=== PATIENT | female | born 2000 | race Caucasian/White ===

== ENCOUNTER → 2021-08-10 08:25 | Outpatient (CLI) | payer BC, SELFPAY ==
--- NOTE | ~2021-08-10 | US_ITS ---
US thyroid INDICATION: Neck fullness. TECHNIQUE: Real-time sonographic images of the thyroid gland were obtained. COMPARISON: No prior studies for comparison. FINDINGS: The right thyroid lobe measures 5.2 x 1.3 x 1.5 cm. There is a hypoechoic solid mass of the right lobe measuring 6 x 4 x 6 mm which is wider than tall, smoothly marginated with no calcificatio ns, TR 4. The left thyroid lobe measures 5.1 x 1.3 x 1.7 cm. Normal vascular flow is present. IMPRESSION: 1. Small 6 mm right thyroid mass, likely benign. Otherwise, unremarkable thyroid ultrasound. Reviewed, dictated and finalized at location A. IMPRESSION: 1. Small 6 mm right thyroid mass, likely benign. Otherwise, unremarkable thyro id ultrasound.
== END ==
PROVIDERS: PCP Internal Medicine; Visit Provider Internal Medicine
DX: R09.89 Other specified symptoms and signs involving the circulatory and respiratory systems (principal)
CPT/HCPCS: 76536

== ENCOUNTER 2021-11-14 07:09 | Emergency (ER) | payer BC, SELFPAY ==
--- NOTE | ~2021-11-14 | CT_ITS ---
EXAMINATION: CT abdomen pelvis w con DATE: 11/14/2021 09:14 INDICATION: Epigastric abdominal pain. Nausea. TECHNIQUE: Computed tomography (CT) of the abdomen and pelvis was performed with 100 mL Omnipaque 350 intravenous contrast. Automated exposure control and iterative reconstruction technique were employe d. The dose-length product was 230.23 mGy-cm. COMPARISON: None. FINDINGS: The visualized portions of the lung bases are clear without pneumonia or pleural effusion. The heart size is normal. No pericardial effusion. The liver, gallbladder, spleen, pancreas, adrenal glands, and kidneys are normal. There is an intrauterine device in expected position. The appendix is normal. There are no dilated loops of bowel. There are no pathologically enlarged lymph nodes. There is no free intraperitoneal fluid. The bones are unremarkable. IMPRESSION: 1. No etiology for the patient's symptoms. Reviewed, dictated and finalized at location A.
[2021-11-14 07:11] VITALS: BP 150/98; PULSE 89; RESP 17; TEMP 36.5; O2SAT 100
--- NOTE | 2021-11-14 07:24 | ED.ABDPAIN ---
HPI - Abdominal Pain General Chief Complaint: Abdominal Pain Stated Complaint: abd pain, nausea, vomiting Time Seen by Provider: 11/14/21 07:24 Source: patient and RN notes reviewed Mode of arrival: ambulatory Limitations: no limitations History of Present Illness HPI narrative: 21 years old white female, presents with intermittent diarrhea, constipation, abdominal bloating for the last 8 months, got worse this morning mainly in the epigastric area with nausea. She denies any fever or chills. No history of abdominal surgery. History of attention deficit syndrome on Adderall. Patient does not take any medicine for IBS she does not smoke or drink or uses drugs. Related Data Allergies Allergy/AdvReac Type Severity Reaction Status Date / Time No Known Allergies Allergy Verified 11/14/21 07:43 Review of Systems Review of Systems: All systems reviewed & are unremarkable except as noted in HPI and below PMFSH Past Medical History Medical History ADHD Generalized anxiety disorder IBS (irritable bowel syndrome) Family History Family History Mother Hypertension Depression Father Hypertension Depression Family history of thyroid disease Social History Social History Smoking status: Never smoker Tobacco type: e-cigarettes/vaping Alcohol intake: current Substance use: never Exam Narrative: General appearance: Well-developed, well-nourished Skin: Normal color Head: Normocephalic, nontraumatic Eyes: Clear conjunctiva ENT: Oropharynx normal, ears normal, nose normal Neck: Supple, nontender Chest and respiratory: Airway patent, no respiratory distress, no accessory muscle use Heart: Regular rate/rhythm Abdomen: Soft, diffuse tenderness mainly epigastric area, no organomegaly, quiet bowel sounds Vascular: Normal peripheral pulses, normal capillary refill. Musculoskeletal: Normal range of motion, nontender back Neurologic: Alert and oriented ?3, CLAIM TAKER is normal as tested, no gross motor deficit Course Vital Signs Vital signs: Vital Signs Temperature 36.5 C 11/14/21 07:11 Pulse Rate 89 11/14/21 07:11 Respiratory Rate 17 11/14/21 07:11 Blood Pressure 150/98 H 11/14/21 07:11 Pulse Oximetry 100 11/14/21 07:11 Oxygen Delivery Room Air 11/14/21 07:11 Temperature 36.5 C 11/14/21 07:11 Pulse Rate 78 11/14/21 09:09 Respiratory Rate 18 11/14/21 09:09 Blood Pressure 118/66 11/14/21 09:09 Pulse Oximetry 99 11/14/21 09:09 Oxygen Delivery Room Air 11/14/21 07:11 MDM - Abdominal Pain Differential Diagnosis Differential diagnosis: Likely abdominal pain, acute appendicitis, calculus of kidney, constipation, diverticulitis and endometriosis Lab Data Result diagrams: 11/14/21 07:40 11/14/21 07:40 Labs: Lab Results 11/14/21 11/14/21 11/14/21 Range/Units 07:40 07:40 08:02 WBC 5.4 (4.5-10.0) K/mm3 RBC 4.08 L (4.2-5.4) M/mm3 Hgb 13.2 (12.0-15.0) g/dL Hct 39.1 (37.0-47.0) % MCV 95.8 (80-100) fl MCH 32.4 (26-34) pg MCHC 33.8 (32-36) g/dl RDW 11.8 (11.5-14.5) % Plt Count 302 (150-375) k/mm3 MPV 9.0 (7.4-10.4) fl Immature Gran % (Auto) 0.4 (0-0.5) % Neut % (Auto) 63.4 (45.5-73.1) % Lymph % (Auto) 26.2 (18.3-44.2) % Zapata % (Auto) 8.4 (2.6-8.5) % Eos % (Auto) 0.9 (0-4.4) % Baso % (Auto) 0.7 (0.2-1.2) % Lymph # (Auto) 1.40 (0.9-3.2) K/mm3 Zapata # (Auto) 0.5 (0.1-0.6) K/mm3 Eos # (Auto) 0.1 (0-0.3) K/mm3 Baso # (Auto)
[2021-11-14] MEDS: SODIUM CHLORIDE 0.9% IV 1,000 ML 999 ML IV CONT (07:38)
[2021-11-14] MEDS: METOCLOPRAMIDE HCL INJ 10 MG/2 ML VIAL IV PUSH (07:49)
[2021-11-14] MEDS: diphenhydrAMINE HCl INJ 50 MG/ML VIAL 25 MG IV PUSH (07:50)
[2021-11-14] MEDS: DICYCLOMINE HCL INJ 20 MG/2 ML VIAL IM (07:50)
[2021-11-14 07:53] LABS: Basophils Percent Auto 0.7 % (0.2-1.2); Eosinophils Absolute Auto 0.1 K/mm3 (0-0.3); Eosinophils Percent Auto 0.9 % (0-4.4); Hematocrit 39.1 % (37.0-47.0); Hemoglobin 13.2 g/dL (12.0-15.0); Immature Granulocyte Absolute 0.02 K/mm3 (0.00-0.031); Immature Granulocyte Percent A 0.4 % (0-0.5); Lymphocytes Percent Auto 26.2 % (18.3-44.2); Mean Corpuscular HGB Conc 33.8 g/dl (32-36); Mean Corpuscular Hemoglobin 32.4 pg (26-34); Mean Corpuscular Volume 95.8 fl (80-100); Monocytes Absolute Auto 0.5 K/mm3 (0.1-0.6); Monocytes Percent Auto 8.4 % (2.6-8.5); Neutrophils Absolute Auto 3.4 K/mm3 (1.3-6.7); Neutrophils Percent Auto 63.4 % (45.5-73.1); Platelet Count Result 302 k/mm3 (150-375); Red Blood Count 4.08 M/mm3 (4.2-5.4); Red Cell Distribution Width 11.8 % (11.5-14.5); White Blood Count 5.4 K/mm3 (4.5-10.0)
[2021-11-14 08:09] LABS: Alanine Aminotransferase 23 U/L (6-35); Albumin Level 4.5 g/dL (3.5-5.1); Alkaline Phosphatase 42 U/L (38-126); Anion Gap 9 mmol/L (8-16); Aspartate Amino Transferase 26 U/L (14-36); Bilirubin,Total 0.9 mg/dL (0.2-1.3); Blood Urea Nitrogen 13 mg/dL (7-17); Calcium 9.2 mg/dL (8.4-10.2); Carbon Dioxide 26 mmol/L (22-30); Chloride 102 mmol/L (98-107); Estimated Glomerular Filt Rate > 60; Glucose 94 mg/dL (65-110); Lipase 66 U/L (23-300); Potassium 3.6 mmol/L (3.4-5.0); Sodium 137 mmol/L (137-145)
[2021-11-14 08:13] LABS: Appearance Urine Slightly Cloudy (Clear); Bilirubin Urine 1+ (Negative); Blood Urine Negative (Negative); Color Urine Amber (Yellow); Glucose Urine UA Negative (Negative); Ketones Urine Trace mg/dL (Negative); Leukocyte Esterase Ur Negative LEU/UL (Negative); Nitrate Urine Negative (Negative); Protein Urine Negative (Negative); Specific Grav Ur >= 1.030 (1.001-1.035); Urobilinogen Urine 0.2 mg/dL (<2.0)
[2021-11-14 08:24] LABS: Bacteria Urine Trace /hpf; Mucus Urine Rare /lpf; RBC Urine 0-2 /hpf (0-2); Squamous Epithelial Cell Urine Many /hpf (Few); WBC Urine 0-3 /hpf
[2021-11-14 08:31] LABS: Add Urine Microscopic? YES
[2021-11-14 09:09] VITALS: BP 118/66; PULSE 78; RESP 18; O2SAT 99
[2021-11-14 10:25] VITALS: BP 126/73; PULSE 73; RESP 18; O2SAT 99
== END 2021-11-14 10:27 | disposition home or self-care (01) ==
PROVIDERS: Emergency Provider Emergency Medicine; PCP Internal Medicine
DX: R10.13 Epigastric pain (principal); K58.9 Irritable bowel syndrome, unspecified; F98.8 Other specified behavioral and emotional disorders with onset usually occurring in childhood and adolescence; F41.1 Generalized anxiety disorder
CPT/HCPCS: 36415; 74177; 80053; 81001; 81025; 83690; 85025; 96361; 96372; 96374; 96375; 99284; J0500; J1200; J2765; J7030; Q9967

== ENCOUNTER 2022-03-16 01:02 | Day surgery (SDC) | payer BC, SELFPAY ==
[2022-03-16 07:23] VITALS: BP 124/81; PULSE 99; RESP 16; TEMP 36.1; O2SAT 100
[2022-03-16] MEDS: LACTATED RINGERS 1,000 ML 150 ML IV CONT (07:32)
--- NOTE | 2022-03-16 08:16 | P.PNAN_ITS ---
Anes - Initial Pre Proc Eval Procedure: Operation Date: 03/16/22 08:45 Proposed Procedures p Esophagogastroduodenoscopy & Colonoscopy - Anthony Mabry MD Date/Time: 03/16/22 08:16 Surgeon: Anthony Mabry MD Pre Op Diagnosis: nausea, diarrhea Patient Data Age: 22 Gender: F Height: 1.65 m Weight: 54.2 kg Last Vital Signs Temp 96.9 F L 03/16/22 07:23 Pulse 99 03/16/22 07:23 Resp 16 03/16/22 07:23 BP 124/81 03/16/22 07:23 Pulse Ox 100 03/16/22 07:23 O2 Del Method Room Air 03/16/22 07:23 Allergies Allergy/AdvReac Type Severity Reaction Status Date / Time No Known Allergies Allergy Verified 03/16/22 07:21 Home Medications Medication Instructions Recorded Confirmed Type dextroamphetamine-amphetamine 10 10 mg PO .qpm work days only #30 03/09/22 03/16/22 Rx mg tablet (Adderall) tabs dextroamphetamine-amphetamine 15 15 mg PO QAM #30 tabs 03/09/22 03/16/22 Rx mg tablet (Adderall) valacyclovir 500 mg tablet 500 mg PO DAILY #30 tabs 03/10/22 03/16/22 Rx yeslas-mhjsxkej-ruviouj 1 cap PO TID 03/16/22 03/16/22 History 36,000-114,000-180,000 unit capsule,delay rel (Creon) Patient hx anesthesia problems: none Family hx anesthesia problems: none Results Review: All pre-operative results and documents have been reviewed as part of the pre- operative evaluation. [facility] Past Medical History Medical History (Updated 12/18/21 @ 15:18 by CHRISTINE Martines) ADHD Generalized anxiety disorder IBS (irritable bowel syndrome) Nausea Family History Family History Mother Hypertension Depression Father Hypertension Depression Family history of thyroid disease Social History Social History Smoking status: Current every day smoker Tobacco type: e-cigarettes/vaping Alcohol intake: current Drinks per week: 2 Substance use: never Living arrangements: with family Spiritual care concerns: No Anes - Eval Final PreProcedure Day of Procedure 03/16/22 08:16 Patient weight: normal Heart: regular rate and rhythm Lungs: clear to auscultation Airway: Mallampati scale class II Neurological: alert and oriented Last oral intake: >/= 8 hours ASA classification: II Emergent: no Anesthetic plan: proceed Anesthesia type and monitoring: general GIVS and standard monitoring Results Review: All pre-operative results and documents have been reviewed as part of the pre- operative evaluation. Informed Consent: The patient's anesthetic plan and its attendant risks and benefits were discussed with the patient/family/POA. Questions were solicited and answers provided to the satisfaction of the patient/family/POA.
--- NOTE | 2022-03-16 08:45 | PM.HPGS ---
History of Present Illness History of Present Illness Consent: Risks, benefits, and alternatives have been discussed and questions answered. Patient agrees to proceed with procedure. Chief complaint: nausea, diarrhea Narrative: Fabiola Jay is a 22 year old female with 8 months of post-prandial diarrhea, also sibo in the past treated with xifaxan but only bloating improved, intermittent abdominal pain. Started on creon after had low elastase in stool but still symptomatic. She had EGD when was much younger, never colonoscopy. Serology for celiac negative, normal calprotectin in stool. Review of Systems Constitutional: Constitutional: Denies headache(s) and Denies weakness Eyes: Eyes: Denies blurry vision ENT: Reports Normal hearing present, Denies headache(s) and Denies neck pain Cardiovascular: Cardiovascular: Denies chest pain and Denies dyspnea Respiratory: Respiratory: Denies dyspnea Gastrointestinal: Gastrointestinal: Reports no additional gastrointestinal complaints Genitourinary: Genitourinary: Denies dysuria Musculoskeletal: Musculoskeletal: Denies neck pain Integumentary/Breasts: Skin/Breast: Denies dry skin Neurologic: Reports Normal hearing present, Denies headache(s) and Denies weakness Psychiatric: Psychiatric: Denies anxiety Endocrine: Endocrine: Denies change in body appearance Hematologic/Lymphatic: Hematologic/Lymphatic: Denies easy bleeding Allergic/Immunologic: Allergic/Immunologic: Denies urticaria PMFSH Past Medical History Medical History (Updated 03/16/22 @ 08:47 by Anthony Mabry MD) ADHD Generalized anxiety disorder IBS (irritable bowel syndrome) Low fecal elastase level Nausea Family History Family History Mother Hypertension Depression Father Hypertension Depression Family history of thyroid disease Social History Social History Smoking status: Current every day smoker Tobacco type: e-cigarettes/vaping Alcohol intake: current Drinks per week: 2 Substance use: never Living arrangements: with family Spiritual care concerns: No Meds Home Medications and Allergies Home Medications Medication Instructions Recorded Confirmed Type dextroamphetamine-amphetamine 10 10 mg PO .qpm work days only #30 03/09/22 03/16/22 Rx mg tablet (Adderall) tabs dextroamphetamine-amphetamine 15 15 mg PO QAM #30 tabs 03/09/22 03/16/22 Rx mg tablet (Adderall) valacyclovir 500 mg tablet 500 mg PO DAILY #30 tabs 03/10/22 03/16/22 Rx uzfoxh-zuvqtmkw-hcltorp 1 cap PO TID 03/16/22 03/16/22 History 36,000-114,000-180,000 unit capsule,delay rel (Creon) Allergies Allergy/AdvReac Type Severity Reaction Status Date / Time No Known Allergies Allergy Verified 03/16/22 07:21 Vital Signs Vital Signs - 24 hr 03/16/22 07:23 Temperature 96.9 F L Pulse Rate 99 Respiratory Rate 16 Blood Pressure 124/81 Pulse Oximetry 100 Oxygen Delivery Room Air Exam Const: General: comfortable and no acute distress HENMT: Face/Nose/Sinus: Normal nares present Eyes: General: appearance normal, both eyes and all related structures Neck: Neck: no JVD Resp: Auscultation: clear to auscultation bilaterally Cardio: Rate: regular rate Rhythm: regular rhythm GI: Inspection: non-distended GI Palp: Yes Soft to palpation Skin: General skin exam: normal color Neuro: General: gait normal Speech: normal speech Extrem: General: normal to inspection Psych: Mental Status: mental status grossly normal Assessment and Plan Assessment and plan (1) Abdominal pain: Code(s): R10.9 - Unspecified abdominal pain Status: Acute Assessment and Plan: egd and colonoscopy with bx (2) IBS (irritable bowel syndrome): Code(s): K58.9 - Irritable bowel syndrome without diarrhea Status: Acute (3) Low fecal elastase level
--- NOTE | 2022-03-16 09:01 | SUR.OPER ---
EGD start 852 end 858 COLON start 903
[2022-03-16 09:24] VITALS: BP 113/67; PULSE 91; RESP 22; O2SAT 100
[2022-03-16 09:34] VITALS: BP 114/68; PULSE 89; RESP 23; O2SAT 100
[2022-03-16 09:44] VITALS: BP 107/68; PULSE 63; RESP 16; O2SAT 100
== END 2022-03-16 09:58 | disposition home or self-care (01) ==
PROVIDERS: PCP Internal Medicine; Visit Provider Internal Medicine Gastroenterology
PROC: 0DJ08ZZ Inspection of Upper Intestinal Tract, Via Natural or Artificial Opening Endoscopic (ICD-10-PCS; CPT 43235; principal; 2022-03-16 08:45)
DX: R19.7 Diarrhea, unspecified (principal); R14.0 Abdominal distension (gaseous); R10.30 Lower abdominal pain, unspecified; R11.0 Nausea; F90.9 Attention-deficit hyperactivity disorder, unspecified type; F41.1 Generalized anxiety disorder; F17.290 Nicotine dependence, other tobacco product, uncomplicated
CPT/HCPCS: 45380; 43239; 88305; J2704; J7120

== ENCOUNTER 2022-11-19 05:08 | Emergency (ER) | payer BC, SELFPAY ==
--- NOTE | ~2022-11-19 | CT_ITS ---
CT of the Abdomen and Pelvis: Indication: Abdominal pain Technique: 2.5 mm axial scans were obtained through the abdomen and pelvis following intravenous adm inistration of 100 cc of Omnipaque 350. Dose reduction technique was used on this scan by utilizing a utomated exposure control and iterative reconstruction technique. The dose-length product (DLP) was 2 32.25 mGy-cm. COMPARISON: 11/20/2021 Findings: Scans through the lung bases are unremarkable. The liver, spleen, pancreas, gallbladder, adrenals and kidneys are within normal limits. No evidence of aortic aneurysm. No lymphadenopathy. No bowel obstruction or bowel wall thickening. There is no evidence to suggest acute appendicitis. Images through the pelvis were performed. Urinary bladder unremarkable. No adnexal mass evident. No a scites. Impression: No significant abnormalities seen. Reviewed, dictated and finalized at [facility]. Impression: No significant abnormalities seen.
[2022-11-19 05:14] VITALS: BP 140/87; PULSE 88; RESP 16; TEMP 36.2; O2SAT 100
[2022-11-19 05:30] LABS: Basophils Absolute Auto 0.1 K/mm3 (0.0-0.1); Basophils Percent Auto 0.9 % (0.2-1.2); Eosinophils Absolute Auto 0.1 K/mm3 (0-0.3); Eosinophils Percent Auto 1.1 % (0-4.4); Hematocrit 42.7 % (37.0-47.0); Hemoglobin 13.7 g/dL (12.0-15.0); Immature Granulocyte Absolute 0.03 K/mm3 (0.00-0.031); Immature Granulocyte Percent A 0.5 % (0-0.5); Lymphocytes Percent Auto 45.2 % (18.3-44.2); Mean Corpuscular HGB Conc 32.1 g/dl (32-36); Mean Corpuscular Hemoglobin 31.9 pg (26-34); Mean Corpuscular Volume 99.3 fl (80-100); Mean Platelet Volume 8.8 fl (7.4-10.4); Monocytes Absolute Auto 0.6 K/mm3 (0.1-0.6); Monocytes Percent Auto 9.2 % (2.6-8.5); Neutrophils Absolute Auto 2.8 K/mm3 (1.3-6.7); Neutrophils Percent Auto 43.1 % (45.5-73.1); Platelet Count Result 364 k/mm3 (150-375); Red Cell Distribution Width 11.9 % (11.5-14.5); White Blood Count 6.4 K/mm3 (4.5-10.0)
[2022-11-19] MEDS: BELLADONNA ALK/PHENOB ELIX 10 ML, MAG HYDROX/ALUMINUM HYD/SIMETH 30 ML, LIDOCAINE HCL 2... PO (05:30)
[2022-11-19 05:36] LABS: Appearance Urine Cloudy (Clear); Bacteria Urine Rare /hpf; Bilirubin Urine Negative (Negative); Blood Urine Negative (Negative); Color Urine Yellow (Yellow); Glucose Urine UA Negative (Negative); Ketones Urine Negative (Negative); Leukocyte Esterase Ur Negative LEU/UL (Negative); Nitrate Urine Negative (Negative); Non Pathogenic Casts 0-2; Protein Urine Negative (Negative); RBC Urine 0-2 /hpf (0-2); Specific Grav Ur 1.026 (1.001-1.035); Squamous Epithelial Cell Urine Few /hpf (Few); Urobilinogen Urine 0.2 mg/dL (<2.0); WBC Urine 0-5 /hpf
[2022-11-19 05:38] LABS: Add Urine Microscopic? YES
[2022-11-19 05:39] LABS: Alanine Aminotransferase 22 U/L (6-35); Albumin Level 4.8 g/dL (3.5-5.1); Alkaline Phosphatase 38 U/L (38-126); Anion Gap 10 mmol/L (8-16); Aspartate Amino Transferase 26 U/L (14-36); Bilirubin,Total 0.5 mg/dL (0.2-1.3); Blood Urea Nitrogen 10 mg/dL (7-17); Calcium 8.9 mg/dL (8.4-10.2); Carbon Dioxide 27 mmol/L (22-30); Chloride 107 mmol/L (98-107); Estimated CRCL calculation 92 ml/min; Estimated Glomerular Filt Rate > 60; Glucose 91 mg/dL (65-110); Lipase 89 U/L (23-300); Potassium 4.3 mmol/L (3.4-5.0); Sodium 144 mmol/L (137-145)
--- NOTE | 2022-11-19 06:09 | ED.ABDPAIN ---
HPI - Abdominal Pain General Chief Complaint: Abdominal Pain <Shahid Jules MD - Last Filed: 11/19/22 21:31> Stated Complaint: abdominal pain <Shahid Jules MD - Last Filed: 11/19/22 21:31> Time Seen by Provider: 11/19/22 05:10 <Shahid Jules MD - Last Filed: 11/19/22 21:31> History of Present Illness HPI narrative: 22-year-old female presented to the emergency department for evaluation of epigastric abdominal pain. Patient states she did have some alcohol tonight and this made her symptoms worse. Patient does have a history of EPI. <Shahid Jules MD - Last Filed: 11/19/22 21:31> Related Data Allergies/Adverse Reactions: Allergies Allergy/AdvReac Type Severity Reaction Status Date / Time No Known Allergies Allergy Verified 11/19/22 05:09 <Shahid Jules MD - Last Filed: 11/19/22 21:31> Review of Systems Review of Systems: All systems reviewed & are unremarkable except as noted in HPI and below <Shahid Jules MD - Last Filed: 11/19/22 21:31> [facility] Past Medical History Medical History: Medical History ADHD Generalized anxiety disorder IBS (irritable bowel syndrome) Low fecal elastase level Nausea <Shahid Jules MD - Last Filed: 11/19/22 21:31> Family History Family History: Family History Mother Hypertension Depression Father Hypertension Depression Family history of thyroid disease <Shahid Jules MD - Last Filed: 11/19/22 21:31> Social History Social History: Social History (Updated 06/01/22 @ 11:30 by Andreina Taylor CMA) Smoking status: Never smoker Tobacco type: e-cigarettes/vaping Alcohol intake: current Drinks per week: 2 Substance use: never Lack of Transportation: No Lack of Food: Never True Current Housing: I Have Housing Concerned About Future Housing: No Difficulty Paying Gas/Electric Bills: No Difficulty Paying for Meds: No Currently Unemployed: No Education: Trade/Vocational Certificate Difficulty w/ Childcare or Family Care: No Living arrangements: with family Spiritual care concerns: No <Shahid Jules MD - Last Filed: 11/19/22 21:31> Exam Narrative: APPEARANCE: Distracted secondary to abdominal pain HEAD: normocephalic, atraumatic. EYES: PERRLA/EOMI, conjunctivae clear. NOSE: Normal no drainage NECK: Supple. No adenopathy, no masses. RESPIRATORY: Airway patent, respirations nonlabored. Clear to auscultation bilaterally, no rales, rhonchi, wheezing. CARDIOVASCULAR: Regular rate and rhythm without murmurs rubs or gallops. ABDOMINAL: Soft, epigastric tenderness to palpation MUSCULOSKELETAL: Moves all extremities. Strength/ROM intact, No edema, No calf tenderness. NEURO: Alert. Cranial nerves II through XII intact. Grossly intact SKIN: Warm, dry. Normal Color <Shahid Jules MD - Last Filed: 11/19/22 21:31> Course Course Emergency Course: 22-year-old female with history of exocrine pancreatic insufficiency. Patient is afebrile with no leukocytosis and a stable hemoglobin. Patient has no significant abnormalities on her CMP. UA was cloudy without other evidence of infection. Due to the level of patient's discomfort a CT scan was ordered. CT scan was ordering at time of signout Dr. Leger <Shahid Jules MD - Last Filed: 11/19/22 21:31> FORKLIFT SUPERVISOR/PA Physician Supervision 07:00 -this patient was signed out to me by Dr. Jules pending CT and pain control. 09:00 -CT abdomen pelvis not concerning for acute intra-abdominal process. I suspect the patient's pain is related to exocrine pancreatic insufficiency. The patient's pain was controlled with IV fluids, Percocet and Bentyl. Will discharge with recommendation for primary care, GI follow-up. Discussed return and emergency precautions including signs/symptoms of acute abdomen. The patie
[2022-11-19] MEDS: HYDROmorphone HCL INJ (*CRX) 1 MG/ML SYR IV PUSH (06:16)
[2022-11-19] MEDS: DICYCLOMINE HCL INJ 20 MG/2 ML VIAL IM (07:47)
[2022-11-19 07:56] VITALS: BP 115/70; PULSE 74; RESP 20; O2SAT 99
[2022-11-19] MEDS: oxyCODONE/ACETAMINOPHEN (*CRX) 5-325 MG TABLET 1 TABLET PO (08:31)
[2022-11-19] MEDS: SODIUM CHLORIDE 0.9% IV 1,000 ML 999 ML IV CONT (08:32)
[2022-11-19 09:22] VITALS: PULSE 71; RESP 20; O2SAT 99
== END 2022-11-19 09:23 | disposition home or self-care (01) ==
PROVIDERS: Emergency Medicine; Emergency Provider Preventive Medicine Aerospace Medicine; PCP Internal Medicine
DX: R10.13 Epigastric pain (principal); R11.2 Nausea with vomiting, unspecified; K58.9 Irritable bowel syndrome, unspecified; K86.81 Exocrine pancreatic insufficiency
CPT/HCPCS: 36415; 74177; 80053; 81001; 81025; 83690; 85025; 96361; 96372; 96374; 99284; A9270; J0500; J1170; J7030; Q9967

== ENCOUNTER 2023-04-23 19:02 | Emergency (ER) | payer BC, SELFPAY ==
--- NOTE | ~2023-04-23 | CT_ITS ---
EXAMINATION: CT brain wo con DATE: 04/23/2023 19:30 INDICATION: Headache. Neck pain. TECHNIQUE: Computed tomography (CT) of the head was performed without intravenous contrast. The mA wa s adjusted according to patient size. Iterative reconstruction technique was employed. The dose-lengt h product was 832.33 mGy-cm. COMPARISON: None FINDINGS: There is no intracranial hemorrhage, acute infarction, or abnormal intracranial mass lesion . The ventricles are normal in size. The orbits are normal. The paranasal sinuses are clear. There ar e small bilateral mastoid effusions. IMPRESSION: 1. Normal brain. Reviewed, dictated and finalized at location E. INSPECTOR IMPRESSION: 1. Normal brain.
[2023-04-23 19:03] VITALS: BP 126/80; PULSE 122; RESP 16; TEMP 36.6; O2SAT 99
--- NOTE | 2023-04-23 19:19 | ED.GENADULT ---
HPI - General Adult General Chief complaint: Unspecified Stated complaint: neck pain Time Seen by Provider: 04/23/23 19:08 Source: patient Mode of arrival: ambulatory Limitations: no limitations History of Present Illness HPI narrative: This is a 23 year old female that presents to the ER for symptoms ongoing since yesterday. Reports fatigue, myalgias, headache and fevers. Reports in the middle of the night she started to develop neck pain. No injury or trauma. She has not taken anything for pain. Reports some associated nausea and vomiting today. Does report chronic abdominal problems. Denies vision changes, numbness or weakness. Related Data Home Medications Medication Instructions Recorded Confirmed morphine 15 mg immediate release 15 mg PO Q6H PRN 11/23/22 11/23/22 tablet Allergies Allergy/AdvReac Type Severity Reaction Status Date / Time No Known Allergies Allergy Verified 04/23/23 20:13 Review of Systems Review of Systems: CONSTITUTIONAL: Reports fever EYES: Denies visual changes ENT: Denies rhinorrhea, congestion, sore throat RESPIRATORY: Denies cough GASTROINTESTINAL: Reports nausea, vomiting MUSCULOSKELETAL: Reports myalgia. NEUROLOGIC: Reports headache. Denies numbness, or weakness. All systems reviewed & are unremarkable except as noted in HPI and below PMFSH Past Medical History Medical History ADHD Generalized anxiety disorder IBS (irritable bowel syndrome) Low fecal elastase level Nausea Family History Family History Mother Hypertension Depression Father Hypertension Depression Family history of thyroid disease Social History Social History Smoking status: Never smoker Tobacco type: e-cigarettes/vaping Alcohol intake: current Drinks per week: 2 Substance use: never Lack of Transportation: No Lack of Food: Never True Current Housing: I Have Housing Concerned About Future Housing: No Difficulty Paying Gas/Electric Bills: No Difficulty Paying for Meds: No Currently Unemployed: No Education: Trade/Vocational Certificate Difficulty w/ Childcare or Family Care: No Living arrangements: with family Spiritual care concerns: No Exam Narrative: GENERAL: Well-appearing, well-nourished, and in no acute distress. HEAD: Normocephalic, atraumatic. EYES: PERRLA and EOMI. ENT: Nares clear, no rhinorrhea or epistaxis. Mucous membranes moist. Oropharynx without tonsillar hypertrophy exudate or other lesions. Bilateral TMs pearly alarcon non-bulging NECK: Supple. No adenopathy or masses. Normal ROM CHEST: Clear to auscultation. No respiratory distress. No wheezes rales or rhonchi HEART: Regular rate and rhythm. No murmur heard. Normal peripheral pulses. ABDOMEN: Soft, nontender, nondistended, normal active bowel sounds. EXTREMITIES: Normal range of motion. No edema. Strength equal in bilateral upper and lower extremities (5/5) SKIN: Warm, dry, no rash. NEURO: No focal deficits. Alert and oriented x3. Cranial nerves 2-12 grossly intact. Normal gait. Negative Kernig and Brudzinski PSYCH: Normal mood and affect Course Course Emergency Course: Patient updated on her workup and agrees with plan of care Vital Signs Vital signs: Vital Signs Temperature 97.8 F 04/23/23 19:03 Pulse Rate 122 H 04/23/23 19:03 Respiratory Rate 16 04/23/23 19:03 Blood Pressure 126/80 04/23/23 19:03 Pulse Oximetry 99 04/23/23 19:03 Temperature 98.7 F 04/23/23 20:12 Pulse Rate 106 H 04/23/23 20:12 Respiratory Rate 20 04/23/23 20:12 Blood Pressure 115/68 04/23/23 20:12 Pulse Oximetry 100 04/23/23 20:12 Medical Decision Making [facility] Narrative Medical decision making narrative: Patient presents to the emergency department for viral symptoms ongoing since yesterday. Rep
[2023-04-23] MEDS: METOCLOPRAMIDE HCL INJ 10 MG/2 ML VIAL IV PUSH (19:42)
[2023-04-23] MEDS: diphenhydrAMINE HCl INJ 50 MG/ML VIAL 25 MG IV PUSH (19:42)
[2023-04-23] MEDS: SODIUM CHLORIDE 0.9% IV 1,000 ML 999 ML IV CONT (19:42)
[2023-04-23] MEDS: ACETAMINOPHEN 500 MG TABLET 1000 MG PO (19:52)
[2023-04-23 19:53] LABS: Basophils Percent Auto 0.6 % (0.2-1.2); Eosinophils Percent Auto 0.6 % (0-4.4); Hematocrit 38.9 % (37.0-47.0); Hemoglobin 12.9 g/dL (12.0-15.0); Immature Granulocyte Absolute 0.01 K/mm3 (0.00-0.031); Immature Granulocyte Percent A 0.1 % (0-0.5); Lymphocytes Absolute Auto 2.08 K/mm3 (0.9-3.2); Lymphocytes Percent Auto 28.9 % (18.3-44.2); Mean Corpuscular HGB Conc 33.2 g/dl (32-36); Mean Corpuscular Hemoglobin 31.6 pg (26-34); Mean Corpuscular Volume 95.3 fl (80-100); Mean Platelet Volume 9.1 fl (7.4-10.4); Monocytes Absolute Auto 0.5 K/mm3 (0.1-0.6); Monocytes Percent Auto 6.9 % (2.6-8.5); Neutrophils Absolute Auto 4.5 K/mm3 (1.3-6.7); Neutrophils Percent Auto 62.9 % (45.5-73.1); Platelet Count Result 328 k/mm3 (150-375); Red Blood Count 4.08 M/mm3 (4.2-5.4); Red Cell Distribution Width 12.1 % (11.5-14.5); White Blood Count 7.2 K/mm3 (4.5-10.0)
[2023-04-23 20:04] LABS: Alanine Aminotransferase 22 U/L (6-35); Albumin Level 4.9 g/dL (3.5-5.1); Alkaline Phosphatase 34 U/L (38-126); Anion Gap 7 mmol/L (8-16); Aspartate Amino Transferase 27 U/L (14-36); Bilirubin,Total 0.7 mg/dL (0.2-1.3); Blood Urea Nitrogen 7 mg/dL (7-17); Calcium 9.5 mg/dL (8.4-10.2); Carbon Dioxide 26 mmol/L (22-30); Chloride 105 mmol/L (98-107); Estimated CRCL calculation 125 ml/min; Estimated Glomerular Filt Rate > 60; Glucose 95 mg/dL (65-110); Potassium 3.4 mmol/L (3.4-5.0); Sodium 138 mmol/L (137-145)
[2023-04-23 20:12] VITALS: BP 115/68; PULSE 106; RESP 20; TEMP 37.1; O2SAT 100
[2023-04-23 20:14] LABS: Influenza A QL RT-PCR Negative (Negative); Influenza B QL RT-PCR Negative (Negative); RSV RNA, RT-PCR Negative (Negative); SARS-CoV-2 RNA PCR Negative (Negative)
[2023-04-23] MEDS: KETOROLAC 15 MG/ML VIAL (*BKC) IV PUSH (20:52)
[2023-04-23 21:08] VITALS: BP 128/82; PULSE 94; RESP 19; O2SAT 99
[2023-04-23 21:19] VITALS: BP 128/82; PULSE 98; RESP 20; O2SAT 100
== END 2023-04-23 21:20 | disposition home or self-care (01) ==
PROVIDERS: Emergency Provider Physician Assistant; PCP Internal Medicine
DX: M54.2 Cervicalgia (principal); B34.9 Viral infection, unspecified
CPT/HCPCS: 36415; 70450; 80053; 85025; 87637; 96361; 96374; 96375; 99284; A9270; J1200; J1885; J2765; J7030

== ENCOUNTER 2024-09-13 19:50 | Emergency (ER) | payer BC, SELFPAY ==
--- NOTE | ~2024-09-13 | US_ITS ---
EXAMINATION: US OB <=14 wk fetus w TV DATE: 09/13/2024 22:05 INDICATION: 4 weeks . Vaginal spotting. TECHNIQUE: Real-time transabdominal and transvaginal obstetric ultrasound. FINDINGS: No prior studies for comparison. The uterus measures 8.2 x 5.1 x 6.1 cm. There is an intrauterine gestational sac, with pole heidy ntified. The crown rump length measures 0.39 cm, which correlates with a estimated gestational age o f 6 weeks 1 day. heart tones are identified measuring 110 BPM. Ovaries within normal limits w ithout significant ovarian or adnexal mass. No free fluid. IMPRESSION: 1. SL IUP with an EGA of 6 weeks, 1 days (EDC by current ultrasound of 05/08/2025). Reviewed, dictated and finalized at location B. IMPRESSION: 1. SL IUP with an EGA of 6 weeks, 1 days (EDC by current ultrasound of ).
[2024-09-13 19:52] VITALS: BP 124/75; PULSE 65; RESP 20; TEMP 36.6; O2SAT 99
--- OUTSIDE RECORDS SUMMARY | 2024-09-13 19:52 | XMS_ITS | Clinical Summary ---
Author Organization [facility] Health Address [address] [place] [address] Care Team Providers Care Silk Folder Name Role Phone Unavailable Primary Care Provider Unavailabl e Social History Tobacco Use Types Packs/Day Years Used Date Smoking Tobacco: Never Assessed Comments Unknown Sex and Gender Information Value Date Recorded Sex Assigned at Not on file Legal Sex Female 9:05 PM PDT Gender Identity Not on file Sexual Orientation Not on file Plan of Treatment Not on file
--- OUTSIDE RECORDS SUMMARY | 2024-09-13 19:52 | XMS_ITS | Encounter Summary ---
Author Organization [facility] Healthcare Address [address] [place] [address] Care Team Providers Care Fine Grader Name Role Phone Lv Chin DO Primary Care Provider [phone] Reason for Visit * Reason Comments GI Problem Vomiting and stomach pain. Can't drink water. Encounter Details Date Type Department Care Team (Late st Contact Info) Description 09/13/2024 7:15 PM CDT Office Visit [facility] at [address] [address] hSreya Israel, LOCOMOTIVE CRANE OPERATOR [address] [place] [address] [address] [place] [address] Dehydration (Primary Dx); Abdominal pain; Nausea and vomiting, unspecified vomiting type Social History Tobacco Use Types Packs/Day Years Used Date Smoking Tobacco: Some Days Vaping Comments:VAP sometimes AUDIT-C Answer Date Recorded Q1: How often do you have a drink containing alc ohol? Never 05/13/2023 Average Number of Drinks Not on file 024 Frequency of Binge Drinking Not on file 04/15 Personal Safety Answer Date Recorded Have you ever been in or are you currently in a harmful physical or emotional relationship or is someone making you feel afraid or unsafe? 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 Gender Identity Not on file Sexual Orientation Not on file documented as of this encounter Last Filed Vital Signs Vital Sign Reading Time Taken Comments Blood Pressure 118/78 09/13/2024 7:11 PM CDT Pulse 87 09/13/2024 7:11 PM CDT Temperature 36.9 C (98.4 F) 09/13/2024 7:11 PM CDT Respiratory Rate 18 09/13/2024 7:11 PM CDT Oxygen Saturation 99% 09/13/2024 7:11 PM CDT Inhaled Oxygen Concentration - - Weight 59 kg (130 lb) 09/13/2024 7:11 PM CDT Height - - Body Mass Index 21.63 08/16/2023 2:27 PM CDT documented in this encounter Patient Instructions * Patient Instructions* Shreya Israel NP - 09/13/2024 7:15 PM CDT Patient presents with 2 days of nausea vomiting. Reports she initially began with diarrhea however is not having any bowel movements at this point. Patient has not been able to keep down any fluids even water. Reports 1 episode of urination today. Concern for electrolyte imbalance/dehydration. documented in this encounter Plan of Treatment Not on file documented as of this encounter Visit Diagnoses Diagnosis Dehydration- Primary Abdominal pain Abdominal pain, unspecified site Nausea and vomiting, unspecified vomiting type documented in this encounter Care Teams Fine Grader Relationship Specialty Start Date End Date Lv Chin DO PCP - General Internal Medicine 03/16/23 documented as of this encounter
--- OUTSIDE RECORDS SUMMARY | 2024-09-13 19:52 | XMS_ITS | Encounter Summary ---
Author Organization [facility] [address] Address [address] [place] [address] Care Team Providers Care Solderer Furnace Name Role Phone Unavailable Primary Care Provider Unavailabl e Prior Encounters Date Type Department Care Team Description 03/05/2019 Converted CPS Chart Documents [facility] [address] [place] [phone] <No scans attached> 03/05/2019 Converted CPS Chart Documents [facility] [id number] [place] [phone] <No scans attached> 03/05/2019 Converted 13x Documents [facility] [address] [place] [address] <No scans attached> 03/05/2019 Converted 13x Documents [facility] [id number] [place] [phone] <No scans attached> Plan of Treatment Not on file Procedures Procedure Name Priority Date/Time Associated Diagnosis Comments TREATMENT OF COMPLICATIONS (POST-SURGICAL) - UNUSUAL CIRCUMSTANCES, BY REPORT Routine 06/11/2019 2:00 AM CDT 32 REMOVAL OF IMPACTED TOOTH - COMPLETELY BONY Routine 06/05/2019 2:00 AM CDT 17 REMOVAL OF IMPACTED TOOTH - COMPLETELY BONY Routine 06/05/2019 2:00 AM CDT 16 REMOVAL OF IMPACTED TOOTH - COMPLETELY BONY Routine 06/05/2019 2:00 AM CDT 1 REMOVAL OF IMPACTED TOOTH - COMPLETELY BONY Routine 06/05/2019 2:00 AM CDT 17 PALLIATIVE TREATMENT OF DENTAL PAIN Routine 06/04/2019 2:00 AM CDT 17 LIMITED ORAL EVALUATION - PROBLEM FOCUSED Routine 06/04/2019 2:00 AM CDT OS CONSULT Routine 06/01/2019 2:00 AM CDT 32 REMOVAL OF IMPACTED TOOTH - COMPLETELY BONY Routine 06/01/2019 2:00 AM CDT 17 REMOVAL OF IMPACTED TOOTH - COMPLETELY BONY Routine 06/01/2019 2:00 AM CDT 16 REMOVAL OF IMPACTED TOOTH - COMPLETELY BONY Routine 06/01/2019 2:00 AM CDT 1 REMOVAL OF IMPACTED TOOTH - COMPLETELY BONY Routine 06/01/2019 2:00 AM CDT THERAPEUTIC PARENTERAL DRUGS, TWO OR MORE ADMINISTRATIONS, DIFFERENT MEDICATIONS Routine 06/01/2019 2:00 AM CDT DEEP SEDATION/GENERAL ANESTHESIA EACH SUBSEQUENT 15 MINUTE INCREMENT Routine 06/01/2019 2:00 AM CDT DEEP SEDATION/GENERAL ANESTHESIA EACH SUBSEQUENT 15 MINUTE INCREMENT Routine 06/01/2019 2:00 AM CDT DEEP SEDATION/GENERAL ANESTHESIA EACH SUBSEQUENT 15 MINUTE INCREMENT Routine 06/01/2019 2:00 AM CDT DEEP SEDATION/GENERAL ANESTHESIA FIRST 15 MINUTES Routine 06/01/2019 2:00 AM CDT 18 LIMITED ORAL EVALUATION - PROBLEM FOCUSED Routine 05/29/2019 2:00 AM CDT BITEWINGS - TWO RADIOGRAPHIC IMAGES Routine 05/29/2019 2:00 AM CDT SINGLE X-RAY Routine 05/29/2019 2:00 AM CDT Visit Diagnoses Not on file
--- OUTSIDE RECORDS SUMMARY | 2024-09-13 19:52 | XMS_ITS | Patient Health Record ---
Author Organization [facility] Address [address] [facility] [address] Goldberg[address] [place] [phone] Care Team Providers Care Channel Manager Name Role Phone Lv Chin DO Primary Care Provider Christy mar Allergies No Known Allergies Reason For Referral No Information Medications Medication SIG (Take, Route, Frequency, Duration) Notes Start Date End Date Status Morphine Sulfate Act bna Sucralfate 1 GM/10ML 10 mL 1 hour before meals and at bedtime on an empty stomach Orally Active Esomeprazole Magnesium 40 MG as directed Orally Active Creon Active valACYclovir HCl Act ban Escitalopram Oxalate Active Dextroamphetamine 10 and 15 mg Active oxyCODONE-Acetaminophen Active Social History Tobacco Use: Social History Observation Description Date Details (start date - stop date) Never Smoker NA - NA Tobacco Use/Smoking Question Answer Notes Are you a nonsmoker Plan Of Treatment No Information Insurance Providers Payer Name Payer Address Payer Phone Subscriber Number Group Number Insured Name Patient Relationship to Insured Coverage Start Date Coverage End Date Blue Access Choice PPO E2 [address] [place] [address] [id number] [facility] Julio leos Child - Insured has Financial Responsibility Medical (General) History Medical History History ICD Code SIBO Pancreatic Insufficiency IBS Anxiety ADHD Surgical History Surgery Date(Month/Year) Colonoscopy (Outside Provider) 2022 EGD (Outside Provider) 2022 Hospitalization History Reason Date(Month/Year) Epigastric Pain - Multiple [facility]: Abdominal Pain 11/2022 Nick: Abdominal Pain 11/2022
--- OUTSIDE RECORDS SUMMARY | 2024-09-13 19:52 | XMS_ITS | Continuity of Care Document ---
Author Organization [facility] Address [address] [place] [address] [place] [address] Phone Care Team Providers Care Food Concession Manager Name Role Phone Umanzor OD, Yann Unavailable Unavailable Procedures Procedure Date Eye Exam, New Patient Refraction Advance Directives Directive Yes / No Effective Date File Name No Information Encounters Encounter Description Practice Location Reason(s) For Visit Diagnoses Date Provider Providers Copied on Encounter [facility], [address], [place], [place], [id number], [place] tel:[phone] [facility] No Information [phone] Umanzor OD Yann. [address] , [address], [place], [address], [place]. tel:[phone] Family History Family Member Type Diagnosis Age At Onset No Information Payers Payer name Insurance type Covered libertarian ID Merari duke(s) [employer] Vision Plan CI [id number] Social History Type Description Quantity Date Captured Comments Sex Female Smoking Status No Information Chief Complaint And Reason For Visit No Information Reason For Referral Reason For Referral No Information History Of Present Illness Encounter Date Complaint History Of Prese nt Illness No Information Functional Status Date Functional Assessmen t No Information Instructions Date Instruction Additional Infor mation No Information Assessments Type Assessment Date No Information Patient Care Teams Name Effective Dates (start - stop) Status Members No Information
--- OUTSIDE RECORDS SUMMARY | 2024-09-13 19:52 | XMS_ITS | Referral Summary ---
Author Organization [facility] Address [address] [place] [address] Care Team Providers Care Track Announcer Name Role Phone Lv Chin DO Primary Care Provider [phone] Encounters Date Type Department Care Team Description 09/13/2024 7:15 PM CDT Office Visit [facility] Care at [address] [address] Shreya Israel NP Dehydration (Primary Dx); Abdominal pain; Nausea and vomiting, unspecified vomiting type from Last 3 Months Allergies Active Allergy Reactions Criticality Noted Date Comments Nortriptyline Other (See comments) Low 06/03/2023 labile mood Medications pancrelipase (Creon) 36,000 units of lipase capsule Take 2 capsules by mouth 3 (three) times a day Active dextroamphetamine- amphetamine (ADDERALL) 15 mg tablet 0.6667 tablets (10 mg total) Active ondansetron ODT (ZOFRAN-ODT) 4 mg disintegrating tablet Take 1 tablet (4 mg total) by mouth every 8 (eight) hours as needed for nausea or vomiting 20 tablet 04/29/[address] (CYMBALTA) 30 mg capsule Take 1 capsule (30 mg total) by mouth daily 30 capsule 5 06/03/19 24 Active diazePAM (VALIUM) 5 mg tablet Take 1 tablet (5 mg total) by mouth daily as needed 07/26/19 24 Active escitalopram (LEXAPRO) 10 mg tablet Take 1.5 tablets (15 mg total) by mouth daily 07/27/19 24 Active methIMAzole (TAPAZOLE) 5 mg tablet Take 1 tablet (5 mg total) by mouth 2 (two) times a day 07/28/19 24 Active progesterone (PROMETRIUM) 100 mg capsule TAKE 1 CAPSULE BY MOUTH EVERY DAY AT BEDTIME 05/24/19 24 Active valACYclovir (VALTREX) 500 mg tablet TAKE 4 TABLETS BY MOUTH EVERY 12 HOURS FOR 2 TOTAL DOSES. MAY CONTINUE WITH 500 MG DAILY INDEFINITELY FOR CHRONIC SUPPRESSIVE THERAPY 06/28/19 24 Active Active Problems Problem Noted Date Diagnosed Date Chronic abdominal pain 05/16/2023 Diarrhea 05/16/2023 High-risk human papillomavir us (HPV) DNA detected in cervical specimen 02/27/2019 Overview (05/16/2023): Cervical high risk HPV DNA test positive;Recorded Elsewhere: No Location: [facility] Source: EHR Chronic: N Practice ID: [id number] Billable Time: 03:46:57 PM Bipolar 2 disorder, major depressive episode 03/2018 Adult general medical examination 02/15/2018 Dysmenorrhea 01/28/2013 Overview (05/16/2023): Dysmenorrhea;Recorded Elsewhere: No Location: [facility] Source: EHR Chronic: N Practice ID: [id number] Billable Time: 03:45:00 PM Irregular periods 01/28/2013 Overview (08/16/2023): Irregular menstrual cycle;Recorded Elsewhere: No Location: [facility] Source: EHR Chronic: N Practice ID: [id number] Billable Time: 03:45:00 PM Social History Tobacco Use Types Packs/Day Years Used Date Smoking Tobacco: Some Days Vaping Tobacco Cessation:Ready to Q uit: Not Asked; Counseling Given: Not Answered Comments:VAP sometimes AUDIT-C Answer Date Recorded Q1: [...] on file 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 Gender Identity Not on file Sexual Orientation Not on file Last Filed Vital Signs Vital Sign Reading Time Taken Comments Blood Pressure 118/78 09/13/2024 7:11 PM CDT Pulse 87 09/13/2024 7:11 PM CDT Temperature 36.9 C (98.4 F) 09/13/2024 7:11 PM CDT Respiratory Rate 18 09/13/2024 7:11 PM CDT Oxygen Saturation 99% 09/13/2024 7:11 PM CDT Inhaled Oxygen Concentration - - Weight 59 kg (130 lb) 09/13/2024 7:11 PM CDT Height 165.1 cm (5' 5) 08/16/2023 2:27 PM CDT Body Mass Index 21.63 08/16/2023 2:27 PM CDT Plan of Treatment Not on file Insurance BL CHOICE [facility] PPO [place] Care Teams Track Announcer Relationship Specialty Start Date End Date Lv Chin DO PCP - General Internal Medicine 03/16/23
--- OUTSIDE RECORDS SUMMARY | 2024-09-13 19:52 | XMS_ITS ---
Author Organization [facility] Address [address] [place] [address] [address] [place] [address] Care Team Providers Care Buckle Sewer Name Role Phone Lv Chin DO Primary Care Provider Chelly Gamboa Unavailable [phone] Allergies No Known Allergies REASON FOR VISIT SIBO, Diarrhea, Anxiety, Pain After Eating Medications Medication SIG (Take, Route, Frequency, Duration) Notes Start Date End Date Status Creon Active valACYclovir HCl Act ban Escitalopram Oxalate Active Dextroamphetamine 10 and 15 mg Active oxyCODONE-Acetaminophen Active Morphine Sulfate Act ban Sucralfate 1 GM/10ML 10 mL 1 hour before meals and at bedtime on an empty stomach Orally Active Esomeprazole Magnesium 40 MG as directed Orally Active Social History Tobacco Use: Social History Observation Description Date Details (start date - stop date) Never Smoker NA - NA Tobacco Use/Smoking Question Answer Notes Are you a nonsmoker Encounters Encounter Location Date Provider Diagnosis [facility], [address] Fajardo [address] [place] [phone] 04/05/2023 Chelly Nunn Plan Of Treatment No Information Progress Notes * Fabiola JAY ADOB: [birth year] (24 yo F)Acc No.[id number]:04/05/2023 Patient: Fabiola RIBEIRO Provider: KALPESH Dewitt :2000 A ge:23 Y S ex:Female Date:04/05/2023 [address] [facility] Pcp:Lv Chin, DO Subjective: * Chief Complaints: * 1 . SIBO. 2. Diarrhea. 3. Anxiety. 4. Pain After Eating. * HPI: H PI: OV with PCP 11/2022 history of a EPI. Multiple trips to the ER. Labs and CT in November normal. Having epigastric pain, especially after eating and drinking. History of frequent diarrhea, takes pancreatic enzymes. Prior EGD and colonoscopy both negative in 2021. Negative for celiac. referred for SIBO testing. * ROS: G I Bleeding: Melena N o. H ematochezia N o. H ematemesis?No. A nemia N o. G I-Stomach: Nausea/Emesis N o. P ain N o. P UD N o.?Anorexia N o. G I-Esophageal: Dysphagia N o. O dynophagia N o. C hest Pain?No. G ER Sx N o. G I-Liver/GB: Jaundice N o. H epatitis N o. G allstones N o. P ancreatitis N o. G I-Colon: Colitis/IBS Y es. D iarrhea Y es. C onstipation N o. H emorrhoids N o. G eneral/Constitutional: Fever N o. C hills N o. W eight Loss N o.? S kin: Rash N o. P ruritus N o. I cterus N o. P hotosensitivity N o. E NT: Diplopia N o. V isual Loss N o. T innitus N o. V ertigo N o. D eafness N o. P oor Dentition N o. H ematology: Easy Bruising N o. H emophilia N o. H ematologic Malignancy N o. L ymphadenopathy N o. H istory of Petechia N o. A nemia?No. C ardiovascular: Palpitations N o. S yncope N o. P ND N o.?MCDERMOTT N o. O rthopnea N o. C hest Pain N o. R espiratory: Cough N o. S putum Production N o. H emoptysis?No. W heezing N o. T B N o. S OB N o. N eurologic: Stroke N o. S eizure Disorder N o. T remor N o. P aralysis N o. S yncope N o. G enitourinary: Dysuria N o. P olyuria N o. I ncontinence N o. R enal Failure N o. H ematuria N o. M usculoskeletal: Joint Pain N o. S welling N o. S tiffness N o. M uscle Weakness N o. M yalgia N o. E ndocrine: Thyroid Disease N o. D iabetes N o. P olyphagia?No. P olydipsia N o. P sychiatric: Delusions N o. H allucinations N o. S uicidal Ideations N o. A llergy/Immunology: Hives N o. C hronic Sinusitis N o. H istory of Anaphylaxis N o. * Medical History: S IBO, Pancreatic Insufficiency, IBS, Anxiety, ADHD. * Surgical History: C olonoscopy (Outside Provider) 2022, EGD (Outside Provider) 2022. * Hospitalization/Major Diagno stic Procedure: [facility]: Abdominal Pain 11/2022, [facility]: Abdominal Pain 11/2022, Epigastric Pain - Multiple . * Family History: F ather: Thyroid Disease. * Social History: T obacco Use: T obacco Use/Smoking A re you a n onsmoker D rugs/Alcohol: D o you Drink Alcohol?: Yes, 2 drinks weekly. * Medications: T aking Esomeprazole Magnesium 40 MG Capsule Delayed Release as directed Orally , Taking Sucralfate 1 GM/10ML Suspension 10 mL 1 hour before meals and at bedtime on an empty stomach Orally , Taking Morphine Sulfate , Taking oxyCODONE-Acetaminophen , Taking Dextroamphetamine , Notes to Pharmacist: 10 and 15 mg, Taking Escitalopram Oxalate , Taking valACYclovir HCl , Taking Creon , Medication List reviewed and reconciled with the patient * Allergies: N .K.D.A. Objective: * Vitals: * Examination: P hysical Examination: GENERAL: A ppears stated age, in no apparent distress. SKIN: N o rash, ecchymoses, petechial, or telangiectasia.? HEENT: Normocephalic, EOMI, Nasal & buccal mucosa clear. NECK: Supple without masses., Normal Range of Motion, No jugular venous distention. LYMPH NODES: No cervical, supraclavicular, or axillary lymphadenopathy. CARDIAC: RRR without murmur, gallop, or rub. PULMONARY: Clear to auscultation and percussion bilaterally. ABDOMEN: B S positive, soft, non-tender, No masses, organomegaly, rebound, or ascites. EXTREMITIES: N o cyanosis, clubbing, or edema. NEUROLOGIC: A lert and oriented x3, No asterixis, Nonfocal examination. C QM Exceptions: Influenza Vaccine not administered: Rosario kurtz: P atient Reason T ype of Patient Reason: T reatment delay - patient choice Pneumococcal Vaccine not administered: Rosario kurtz: M edical Reason T ype of Medical Reason: N ot indicated Assessment: Plan: * Treatment: * Images: * Electronic signature of EVELINE Paris on 09/13/2024 at 07:07 PM CDT Sign off status: Pending * Provider: KALPESH Dewitt Date: 0 04/05/2023 Generated for Cindy bloom/Abdirahman/Nickolas on: 0 09/13/2024 07:07 PM CDT
--- OUTSIDE RECORDS SUMMARY | 2024-09-13 19:52 | XMS_ITS | Clinical Summary ---
Author Organization [facility] Address [address] [place] [address] Care Team Providers Care It Administrative Assistant Name Role Phone Lv Chin DO Primary Care Provider [phone] Allergies Active Allergy Reactions Criticality Noted Date [...] test positive;Recorded Elsewhere: No Location: [facility] Source: EHR Chronic: N Practice ID: [id number] Billable Time: 03:46:57 PM Bipolar 2 disorder, major depressive episode 03/2018 Adult general medical examination 02/15/2018 Dysmenorrhea 01/28/2013 Overview (05/16/2023): Dysmenorrhea;Recorded Elsewhere: No Location: [facility] Source: EHR Chronic: N Practice ID: [id number] Billable Time: 03:45:00 PM Irregular periods 01/28/2013 Overview (08/16/2023): Irregular menstrual cycle;Recorded Elsewhere: No Location: [facility] Source: EHR Chronic: N Practice ID: [id number] Billable Time: 03:45:00 PM Encounters Date Type Department Care Team Description 09/13/2024 7:15 PM CDT Office Visit [facility] at [address] [address] Shreya Israel NP Dehydration (Primary Dx); Abdominal pain; Nausea and vomiting, unspecified vomiting type from Last 3 Months Surgical History Surgery Date Site/Laterality Comments NOSE SURGERY 02/14/2022 - 02/13/2023 after a dog bite Medical History Medical History Date Comments GERD (gastroesophageal reflux disease) Anxiety Depression Hypertension Family History Medical History Relation Name Comments Depression Brother Hypertension Father Depression Mother Hypertension Mother Depression Sister Relation Name Status Comments Brother Father Mother Sister Social History Tobacco Use Types Packs/Day Years [...] on file 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 Gender Identity Not on file Sexual Orientation Not on file Obstetrics History Last Filed Vital Signs Vital Sign Reading [...] 08/16/2023 2:27 PM CDT Plan of Treatment Health Maintenance Due Date Last Done Comments Cervical Cancer Screening 2000 Depression Screening 2000 Hepatitis C Screening 2000 Pneumococcal vaccine <65 (2 of 2 - PPSV23) 2004 11/03/2000 Regular Well Visit/Exam 18-64 2016 Influenza Vaccine (#1) 2024 10/30/2015 DTaP/Tdap/Td Vaccine (7 - Td or Tdap) 03/12/2029 03/12/2019, 09/23/2009, 11/03/2000, Additional history exists Hepatitis B Screening Completed 07/16/1999, 999 Varicella Vaccines Completed 08/09/2005, 07/16/1999 HPV Vaccines Completed 10/30/2015, 09/23/2009 Insurance BL CHOICE [employer] PPO [place] Care Teams It Administrative Assistant Relationship Specialty Start Date End Date Lv Chin DO PCP - General Internal Medicine 03/16/23
--- OUTSIDE RECORDS SUMMARY | 2024-09-13 19:52 | XMS_ITS | Clinical Summary ---
Author Organization [facility] Address [address] [place] [address] Phone Care Team Providers Care Print Line Inspector Name Role Phone Lei Prieto DO Primary Care Provider [phone] Allergies No known active allergies Medications ibuprofen (MOTRIN) 600 mg tablet Take 1 Tablet (600 mg) by mouth every 6 hours as needed for moderate pain. 20 Tablet 12/02/2020 1:30 PM CDT 1 Active HYDROcodone-aceta minophen (NORCO) 5-325 mg tabletIndications :PID (acute pelvic inflammatory disease) Take 1 Tablet by mouth every 4 hours as needed for break-through or severe pain. Max Daily Amount: 6 Tablets 10 Tablet 12/02/2020 1:30 PM CDT 1 Active Active Problems Problem Noted Date Diagnosed Date Adult general medical examination 02/15/2018 Bipolar 2 disorder, major depressive episode 03/2018 Immunizations Immunization Administration Dates Next Due (ADACEL/BOOSTRIX)(10 YR UP) TDAP VACCINE, 0.5ML, IM 03/12/2019 Social History Tobacco Use Types Packs/Day Years Used Date Smoking Tobacco: Every Day E-Cigarette/M ist Inhalation Device Smokeless Tobacco: Never Alcohol Use Standard Drinks/Week Comments Yes 0 (1 standard drink = 0.6 oz pur e alcohol) Comments No Sex and Gender Information Value Date Recorded Sex Assigned at Not on file 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 Gender Identity Not on file Sexual Orientation Not on file Last Filed Vital Signs Vital Sign Reading Time Taken Comments Blood Pressure 116/62 11/26/2022 7:16 PM CDT Pulse 83 11/26/2022 7:16 PM CDT Temperature 36.2 C (97.2 F) 11/26/2022 7:16 PM CDT Respiratory Rate 17 11/26/2022 7:16 PM CDT Oxygen Saturation 100% 11/26/2022 7:16 PM CDT Inhaled Oxygen Concentration - - Weight 52.8 kg (116 lb 6.4 oz) 12/04/2020 9:02 A M CDT Height 165.1 cm (5' 5) 12/04/2020 9:02 AM CDT Body Mass Index 19.37 12/04/2020 9:02 AM CDT Plan of Treatment Health Maintenance Due Date Last Done Comments HPV VACCINES (1 - 3-dose series) 2013 HEPATITIS B VACCINES (1 of 3 - 19+ 3-dose series) 02/14 HPV/Cotest (21-29) 2019 INFLUENZA VACCINE (#1) 2024 CERVICAL CANCER SCREENING 08/19/2025 PAP SMEAR 08/19/2025 08/19/2022 DTAP/TDAP/TD VACCINES (2 - Td or Tdap) 03/12/2029 CHLAMYDIA SCREENING (ANNUAL) 11-24 YEARS Discontinued 12/02/2020 Procedures Procedure Name Priority Date/Time Associated Diagnosis Comments GC/CHLAMYDIA, UROGENITAL Stat 12/02/2020 9:37 AM CDT from Last 3 Months or Most Recently Relevant to Health Maintenance Results * (ABNORMAL) GC/CHLAMYDIA, UROGENITAL (12/02/2020 9:37 AM CDT) CHLAMYDIA DNA AMPLIFICATION DETECTED(A) Not Detected 12/03/2020 3:33 PM CDT [facility] Comment:Health department no tified by laboratory per state regulations. GC DNA AMPLIFICATION NOT DETECTED Not Detected 12/03/2020 3:33 PM CDT [facility] Genital SWAB OF ENDOCERVIX / Unknown Collection / Unknown 12/02/2020 9:37 AM CDT 12/02/2020 9:41 AM CDT Narrative [facility] - 12/03/2020 3:33 PM CDT Results should not be used for the evaluation of suspected sexual abuse or for other medico-legal indications. The only legally accepted results are from culture. Results cannot be used to assess therapeutic success or failure since nucleic acids may persist following antimicrobial therapy. us Almas Urbina MD MICROBIOLOGY - GENERAL ORDERAB LES Final Result [facility] CLIA# [id number] [address] [facility] [place] [address] from Last 3 Months or Most Recently Relevant to Health Maintenance Insurance zuuka!/TRUE BLUE PPO [facility] [id number] BCBS BLUE ACCESS CHOICE [employer] (INTERNAL) [facility] Internal Plans Advance Directives For more information, please contact: [phone] * Full Code (Latest Code Status on File) Date Activated Date Inactivated Comments 11/26/2022 5:14 PM 11/26/2022 9:33 PM * Full Code Date Activated Date Inactivated Comments 11/26/2022 1:32 PM 11/26/2022 5:14 PM * Full Code Date Activated Date Inactivated Comments 02/15/2018 5:29 AM 02/17/2018 7:22 PM Care Teams Print Line Inspector Relationship Specialty Start Date End Date Lei Prieto DO [address] [place] [phone] PCP - General Supervisor Product Inspection 12/02/20
--- OUTSIDE RECORDS SUMMARY | 2024-09-13 19:52 | XMS_ITS | Patient Health Record ---
Author Organization [facility] Address [facility] [address] [facility] [address] [place] [address] Care Team Providers Care Plant Senior Manager Name Role Phone Lv Chin DO Primary Care Provider Angle Farris Unavailable [phone] Allergies No Known Allergies Results Component Value Reference Range Notes UDT Reviewed date:12/12/2023 04:43:10 PM Interpretation: Performing Lab: Notes/Report: THC p 0 - 50 ng/ml Cocaine n 0 - 300 ng/ml Amphetamine p 0 - 1000 ng/ml Buprenorphine (BUP) n 0 - 10 ng/ml Secobarbital (Bar) n 0 - 300 ng/ml Oxazepam (BZO) n 0 - 300 ng/ml 0-zegjryqogr-1,7-lagbuhyi-7,3-diphenylpyrrolidine (YOLY P) n 0 - 300 ng/ml Methamphetamine (MET) n 0 - 1000 ng/ml Methylenedioxymethamphetamine (MDMA) n 0 - 500 ng/ml Morphine (MOP 300/BMX2041) n 0 - 300 ng/ml Methadone (MTD) n 0 - 300 ng/ml Phencyclidine (PCP) n 0 - 25 ng/ml Nortriptyline (TCA) n 0 - 1000 ng/ml Oxycodone n 0 - 300 ng/ml x n 0 - 300 ng/ml Reason For Referral No Information Medications Medication SIG (Take, Route, Frequency, Duration) Notes Start Date End Date Status Amphetamine-Dextroamphet ER 15 MG 1 capsule in the morning Orally Once a day; Duration: 30 days 12/12/2023 Active Amphetamine-Dextroamphet ER 10 MG 1 capsule Orally Once a day; Duration: 30 days in the afternoon as needed 12/12/2023 Active ARIPiprazole 5 MG TAKE 1 TABLET BY SHAD DAILY; Duration: 90 Active methIMAzole 5 MG 1 tablet Orally twic e a day Active Escitalopram Oxalate 5 MG 1 tablet Orall y Once a day; Duration: 90 days Active Mirtazapine 7.5 MG 1 tablet at bedtime Orally Once a day; Duration: 90 days 12/12/2023 Active Social History Tobacco Use: Social History Observation Description Date Details (start date - stop date) Former Smoker NA - NA Sex Assigned At : Social History Observation Description Sex Assigned At Female Alcohol Screen (Audit-C) Question Answer Notes Did you have a drink contain ing alcohol in the past year? Yes How often did you have 6 or more drinks on one occasion in the past year? Weekly (3 points) How many drinks did you have on a typical day when you were drinking in the past year? 3 or 4 drinks (1 point) How often did you have a dri nk containing alcohol in the past year? 4 or more times a week (4 points) Tobacco Control (Standard) Question Answer Notes Tobacco use: Former smoker Problems Problem Type SNOMED Code ICD Code Onset Dates Problem Status W/U Status Risk Notes Problem Bipolar 2 disorder (73712472) Bipolar 2 disorder (F31.81) Active confirmed Problem Attention deficit hyperactivity disorder (150600180) ADHD (attention deficit hyperactivity disorder), combined type (F90.2) Active confirmed Vital Signs Heart Rate 117 /min 12/12/2023 Height-cm 165.1 cm 12/12/2023 Blood pressure diastolic 81 mm Hg 12/12/2023 Weight-kg 55.34 kg 12/12/2023 Height 65 in 12/12/2023 Blood pressure systolic 122 mm Hg 12/12/2023 Weight 122 lbs 12/12/2023 BMI 20.3 kg/m2 12/12/2023 Encounters Encounter Location Date Provider Diagnosis [facility] [address] [place] [address] 10/31/2023 Angle Torres Bipolar 2 disorder F31.81 and ADHD (attention deficit hyperactivity disorder), combined type F90.2 [facility] [address] [place] [address] 12/12/2023 Angleclaire Torres Bipolar 2 disorder F31.81 and ADHD (attention deficit hyperactivity disorder), combined type F90.2 [facility] [address] [place] [address] 03/12/[address] [facility] [address] [facility] [address] [place] [address] 11/11/2023 Angle Torres ADHD (attention deficit hyperactivity disorder), combined type F90.2 [facility] [address] [facility] [address] [facility] [address] [place] [address] 11/14/[address] [facility] [address] [facility] [address] [facility] [address] [place] [address] 11/21/2023 Angle Torres ADHD (attention deficit hyperactivity disorder), combined type F90.2 Assessments Encounter Date Diagnosis (ICD Code) Assessment Notes Treatment Notes Treatment Clinical Notes Section Notes 10/31/2023 Bipolar 2 disorder (ICD-10 - F31.81) Second generation antipsychotics (SGAs) have metabolic syndrome issues with weight gain, increase in prolactin, increased waist circumference, increased lipids, and increased glucose. Thus routine monitoring of weight, metabolic labs, etc. is indicated. A general rank ordering of antipsychotics that have the greatest to the least risk of metabolic effects is olanzapine, quetiapine, risperidone, ziprasidone, and aripiprazole. However, weight gain can occur with all of these drugs and considerable variability exists among patients receiving the same drug regarding the risk of metabolic effects. Anti-psychotic agents not only increase the risk of metabolic disorder, they also increase the risk of CVA, akathisia, and movement disorders including EPS or tardive dyskinesia (more common with first generation antipsychotics) and more. 10/31/2023 ADHD (attention deficit hyperactivity disorder), combined type (ICD-10 - F90.2) BOXED WARNINGCaution with history of drug dependence or alcoholism. Marked tolerance and psychological dependence may result from chronic abusive use. Henrik psychotic episodes may occur, especially with parenteral abuse. Careful supervision required for withdrawal from abusive use to avoid severe depression. Withdrawal following chronic use may unmask symptoms of underlying disorder that may require follow-up 11/11/2023 ADHD (attention deficit hyperactivity disorder), combined type (ICD-10 - F90.2) 11/21/2023 ADHD (attention deficit hyperactivity disorder), combined type (ICD-10 - F90.2) 12/12/2023 Bipolar 2 disorder (ICD-10 - F31.81) Second generation antipsychotics (SGAs) have metabolic syndrome issues with weight gain, increase in prolactin, increased waist circumference, increased lipids, and increased glucose. Thus routine monitoring of weight, metabolic labs, etc. is indicated. A general rank ordering of antipsychotics that have the greatest to the least risk of metabolic effects is olanzapine, quetiapine, risperidone, ziprasidone, and aripiprazole. However, weight gain can occur with all of these drugs and considerable variability exists among patients receiving the same drug regarding the risk of metabolic effects. Anti-psychotic agents not only increase the risk of metabolic disorder, they also increase the risk of CVA, akathisia, and movement disorders including EPS or tardive dyskinesia (more common with first generation antipsychotics) and more. 12/12/2023 ADHD (attention deficit hyperactivity disorder), combined type (ICD-10 - F90.2) BOXED WARNINGCaution with history of drug dependence or alcoholism. Marked tolerance and psychological dependence may result from chronic abusive use. Henrik psychotic episodes may occur, especially with parenteral abuse. Careful supervision required for withdrawal from abusive use to avoid severe depression. Withdrawal following chronic use may unmask symptoms of underlying disorder that may require follow-up 10/31/2023 Other Start Abilify 5mg daily for mood stabilization Decrease escitalopram to 5mg daily due to ineffectiveness. Continue Adderall at current dose, discussed controlled substance policy with stimulants, PCP currently managing. Patient educated on all medications including potential benefits, side effects, risks. Educated on proper dosing schedule and importance of compliance. [place] PD[place] report checked and consistent with prescription history, no controlled substance prescriptions from other providers. Continue individual counseling. 12/12/2023 Other Start mirtazapine 7.5mg qHS for sleep, appetite. Patient educated on all medications including potential benefits, side effects, risks. Educated on proper dosing schedule and importance of compliance. [place] PDMP report checked and consistent with prescription history, no controlled substance prescriptions from other providers. Discussed controlled substance policy and no cannabis or stimulant will be discontinued. Plan Of Treatment Pending Test Test Name Order Date UDT 10/31/2023 Insurance Providers Payer Name Payer Address Payer Phone Subscriber Number Group Number Insured Name Patient Relationship to Insured Coverage Start Date Coverage End Date [facility] [address] [place] [address] [id number] Fabiola Jay Self - patient is the insured Medical (General) History Medical History History ICD Code Please check off any of the following medical conditions you currently have or have had in the past:: anxiety,depression,gastrointestinal disorders,high blood pressure,thyroid disease
--- NOTE | 2024-09-13 20:15 | PC.NURSE ---
Pt presents to ED c/o n/v x2 days, per pt x2 episodes of clear bloody emesis, chills and 8/10 aching abdominal pain- non radiating . Pt states she went to urgent care earlier today and was told to come to ED.
[2024-09-13 20:21] VITALS: BP 121/72; O2SAT 99
[2024-09-13 20:38] LABS: BEDSIDEPREGUCG Positive (Negative)
[2024-09-13 20:40] LABS: Hematocrit 38.7 % (37.0-47.0); Hemoglobin 12.9 g/dL (12.0-15.0); Immature Granulocyte Percent A 0.4 % (0-0.5); Lymphocytes Absolute Auto 2.33 K/mm3 (0.9-3.2); Mean Corpuscular HGB Conc 33.3 g/dl (32-36); Mean Corpuscular Hemoglobin 31.9 pg (26-34); Mean Corpuscular Volume 95.6 fl (80-100); Nucleated Red Blood Cells Absolute Auto 0.000 K/mm3 (0.0-0.012); Nucleated Red Blood Cells Perc 0.0 % (0.0-0.2); Platelet Count Result 351 k/mm3 (150-375); Red Blood Count 4.05 M/mm3 (4.2-5.4); White Blood Count 11.2 K/mm3 (4.5-10.0)
[2024-09-13 20:52] LABS: Add Urine Microscopic? YES; Appearance Urine Cloudy (Clear); Glucose Urine UA Negative (Negative); Leukocyte Esterase Ur Negative LEU/UL (Negative); Need Manual Microscopic Reviewed; Nitrate Urine Negative (Negative); Non Pathogenic Casts 0-2; Specific Grav Ur 1.031 (1.001-1.035)
[2024-09-13 20:54] LABS: Alanine Aminotransferase 17 U/L (6-35); Albumin Level 4.8 g/dL (3.5-5.1); Alkaline Phosphatase 40 U/L (38-126); Anion Gap 8 mmol/L (4-12); Aspartate Amino Transferase 26 U/L (14-36); Bilirubin,Total 0.9 mg/dL (0.2-1.3); Blood Urea Nitrogen 11 mg/dL (7-17); Calcium 9.4 mg/dL (8.4-10.2); Carbon Dioxide 20 mmol/L (22-30); Chloride 102 mmol/L (98-107); Estimated Glomerular Filt Rate > 60; Glucose 83 mg/dL (65-110); Lipase 88 U/L (23-300); Potassium 3.9 mmol/L (3.4-5.0); Sodium 130 mmol/L (137-145); Total Protein 7.7 g/dL (6.3-8.2)
--- OUTSIDE RECORDS SUMMARY | 2024-09-13 21:01 | XMS_ITS | Referral Summary ---
Author Organization [facility] Address [address] [place] [address] Care Team Providers Care Global Chief Experience Officer Name Role Phone Lv Chin DO Primary Care Provider [phone] Encounters Date Type Department Care Team Description 09/13/2024 7:15 PM CDT Office Visit [facility] at [address] [address] Shreya Israel NP Dehydration (Primary [...] HPV DNA test positive;Recorded Elsewhere: No Location: [facility] Source: EHR Chronic: N Practice ID: [id number] Billable Time: 03:46:57 PM Bipolar 2 disorder, major depressive episode 03/2018 Adult general medical examination 02/15/2018 Dysmenorrhea 01/28/2013 Overview (05/16/2023): Dysmenorrhea;Recorded Elsewhere: No Location: [facility] Source: EHR Chronic: N Practice ID: [id number] Billable Time: 03:45:00 PM Irregular periods 01/28/2013 Overview (08/16/2023): Irregular menstrual cycle;Recorded Elsewhere: No Location: [facility] Source: EHR Chronic: N Practice ID: [id number] [...] on file 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 PPO [place] Care Teams Global Chief Experience Officer Relationship Specialty Start Date End Date Lv Chin DO PCP - General Internal Medicine 03/16/23
--- OUTSIDE RECORDS SUMMARY | 2024-09-13 21:01 | XMS_ITS | Clinical Summary ---
Author Organization [facility] Address [address] [place] [address] Care Team Providers Care Chair Inspector And Leveler Name Role Phone Lv Chin DO Primary Care Provider [phone]- [phone] Allergies Active Allergy Reactions Criticality Noted Date [...] HPV DNA test positive;Recorded Elsewhere: No Location: [facility] Source: EHR Chronic: N Practice ID: [id number] Billable Time: 03:46:57 PM Bipolar 2 disorder, major depressive episode 03/2018 Adult general medical examination 02/15/2018 Dysmenorrhea 01/28/2013 Overview (05/16/2023): Dysmenorrhea;Recorded Elsewhere: No Location: [facility] Source: EHR Chronic: N Practice ID: [id number] Billable Time: 03:45:00 PM Irregular periods 01/28/2013 Overview (08/16/2023): Irregular menstrual cycle;Recorded Elsewhere: No Location: [facility] Source: EHR Chronic: N Practice ID: [id number] Billable Time: 03:45:00 PM Encounters Date Type Department Care Team Description 09/13/2024 7:15 PM CDT Office Visit [facility] at [address] [address] Shreya Israel NP Dehydration (Primary [...] on file 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
--- OUTSIDE RECORDS SUMMARY | 2024-09-13 21:01 | XMS_ITS | Clinical Summary ---
Author Organization [facility] Health Address [address] [place] [address] Care Team Providers Care Consulting Marine Engineer Name Role Phone Unavailable Primary Care Provider [...]
--- OUTSIDE RECORDS SUMMARY | 2024-09-13 21:01 | XMS_ITS | Continuity of Care Document ---
Author Organization [facility] Address [address] [place] [address] [place] [address] Phone Care Team Providers Care Sheep Farm Manager Name Role Phone Umanzor OD, Yann Unavailable Unavailable Procedures Procedure Date Eye Exam, New Patient Refraction Advance Directives Directive Yes / No Effective Date File Name No Information Encounters Encounter Description Practice Location Reason(s) For Visit Diagnoses Date Provider Providers Copied on Encounter [facility], [address], [place], [place], [id number], [place] tel:[phone] [facility] No Information 0-200 8 Umanzor OD Yann. [address] , [address], [place], [address], [place]. tel:[phone] Family History Family Member Type Diagnosis Age At Onset No Information Payers Payer name Insurance type Covered democrat ID Merari duke(s) [employer] Vision Plan CI [id number] 2 Social History Type Description Quantity Date [...]
--- OUTSIDE RECORDS SUMMARY | 2024-09-13 21:01 | XMS_ITS | Clinical Summary ---
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 GC DNA AMPLIFICATION NOT DETECTED Not Detected 12/03/2020 3:33 PM CDT [facility] Genital SWAB OF ENDOCERVIX / Unknown Collection / Unknown 12/02/2020 9:37 AM CDT 12/02/2020 9:41 AM CDT Narrative [facility] - 12/03/2020 3:33 PM CDT Results should not be used for the evaluation of suspected sexual abuse or for other medico-legal indications. The only legally accepted results are from culture. Results cannot be used to assess therapeutic success or failure since nucleic acids may persist following antimicrobial therapy. us Almas Urbina MD MICROBIOLOGY - GENERAL ORDERAB LES Final Result [facility] CLIA# [id number] [address] [facility] [place] [address] from Last 3 Months or Most Recently Relevant to Health Maintenance Insurance [employer]/TRUE BLUE PPO [facility] [id number] BC[employer] BLUE ACCESS CHOICE RX [employer] PLANS (INTERNAL) [facility] Advance Directives For more information, please contact: [phone] * Full Code (Latest Code Status on File) Date Activated Date Inactivated Comments 11/26/2022 5:14 PM 11/26/2022 9:33 PM * Full Code Date Activated Date Inactivated Comments 11/26/2022 1:32 PM 11/26/2022 5:14 PM * Full Code Date Activated Date Inactivated Comments 02/15/2018 5:29 AM 02/17/2018 7:22 PM Care Teams Underbaster Relationship Specialty Start Date End Date Lei Prieto DO [address] [place] [address] PCP - General Infrastructure Project Manager 12/02/20
--- OUTSIDE RECORDS SUMMARY | 2024-09-13 21:01 | XMS_ITS | Encounter Summary ---
Author Organization [facility] Address [address] [place] [address] Care Team Providers Care Boiler Plant Worker Name Role Phone Unavailable Primary Care Provider Unavailabl e Prior Encounters Date Type Department Care Team Description 03/05/2019 Converted CPS Chart Documents [facility] [address] [place] [phone] <No scans attached> 03/05/2019 Converted CPS Chart Documents [facility] [address] [place] [address] <No scans attached> 03/05/2019 Converted 13x Documents [facility] [address] [place] [address] <No scans attached> 03/05/2019 Converted 13x Documents [facility] [address] [place] [phone] <No scans attached> Plan of Treatment [...]
--- OUTSIDE RECORDS SUMMARY | 2024-09-13 21:01 | XMS_ITS | Encounter Summary ---
Author Organization [facility] Address [address] [place] [address] Care Team Providers Care P 3 Armament/Ordnance Ima Technician Name Role Phone Lv Chin DO Primary Care Provider [phone] Reason for Visit * Reason Comments GI Problem Vomiting and stomach pain. Can't drink water. Encounter Details Date Type Department Care Team (Late st Contact Info) Description 09/13/2024 7:15 PM CDT Office Visit 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
--- NOTE | 2024-09-13 21:20 | ED_ITS ---
HPI - Nausea/Vomiting/Diarrhea General Chief complaint: Nausea/Vomiting/Diarrhea Stated complaint: nausea/vomiting Time Seen by Provider: 09/13/24 20:17 Source: patient Mode of arrival: ambulatory Limitations: no limitations History of Present Illness HPI Narrative: Patient is a 24-year-old female who presents the ED with report of nausea, vomiting. Patient reports she has had persistent nausea and vomiting over the past 3 days. Has had difficulty keeping down food and drink. Has been taking Zofran at home without improvement. Went to an urgent care today was told she may be dehydrated. Referred here for further evaluation. Reports constipation for the past 2 days. Denies significant abdominal pain. Reports vaginal spotting, brown, currently being on her menstrual cycle. Denies fevers. Denies sick contacts. Related Data Home Medications ?Medication ?Instructions ?Recorded ?Confirmed ?Last Taken ?Type aripiprazole 5 mg tablet 5 mg PO DAILY 11/29/23 05/02/24 Unknown History Allergies Allergy/AdvReac Type Severity Reaction Status Date / Time No Known Allergies Allergy Verified 09/13/24 19:54 Review of Systems 2 Review of Systems: All systems reviewed & are unremarkable except as noted in HPI. All systems reviewed & are unremarkable except as noted in HPI and below PMFSH Past Medical History Medical History Low fecal elastase level Nausea Generalized anxiety disorder ADHD IBS (irritable bowel syndrome) Family History Family History Mother Hypertension Depression Father Hypertension Depression Family history of thyroid disease Sibling No problems noted. Social History Social History Smoking status: Never smoker Tobacco type: e-cigarettes/vaping Alcohol intake: current Drinks per week: 2 Substance use: never Lack of Transportation: No Lack of Food: Never True Current Housing: I Have Housing Concerned About Future Housing: No Difficulty Paying Gas/Electric Bills: No Difficulty Paying for Meds: No Currently Unemployed: No Education: Trade/Vocational Certificate Difficulty w/ Childcare or Family Care: No Living arrangements: with family Spiritual care concerns: No Exam 2 Narrative: GENERAL: Well appearing, well-nourished, non-toxic, in no acute distress. HEAD: Normocephalic, atraumatic. RESPIRATORY: Airway patent, respirations nonlabored. Clear to auscultation bilaterally, no rales, rhonchi, wheezing. CARDIOVASCULAR: Regular rate and rhythm without murmurs, rubs, or gallops. ABDOMINAL: Soft, no significant focal tenderness. Nondistended. Normoactive BS. MUSCULOSKELETAL: Moves all extremities. No gross deformities. SKIN: Warm, dry, normal color. NEURO: A&O X3. Speech clear. PSYCHIATRIC: Appropriate mood and affect. Normal interaction. Course Vital Signs Vital signs: Vital Signs Temperature 97.8 F 09/13/24 19:52 Pulse Rate 65 09/13/24 19:52 Respiratory Rate 20 09/13/24 19:52 Blood Pressure 124/75 09/13/24 19:52 Pulse Oximetry 99 09/13/24 19:52 Temperature 97.8 F 09/13/24 19:52 Pulse Rate 65 09/13/24 19:52 Respiratory Rate 20 09/13/24 19:52 Blood Pressure 124/75 09/13/24 19:52 Pulse Oximetry 99 09/13/24 19:52 MDM - Nausea/Vomiting/Diarrhea MDM Narrative Medical decision making narrative: Patient presented to ED with 3 day history of nausea, vomiting, difficulty maintaining p.o. intake. Vital signs are stable upon arrival. Patient in no acute distress. Bedside test was positive. Patient was unaware of this. She reports her last normal menstrual cycle was at the end of July. She does report having some brown vaginal spotting over the 5 days. She assumed she was on her menstrual cycle. She has never been before. Does admit that her breasts have been tender over the past couple days. Beta hCG was obtained, >40,000. Pelvic ultrasound obtained and showing live IUP 6 weeks 1 day with heart tones 112 beats per minute. Slightly slower than to be expected, but possibly related to dehydration. No concerning features. Blood type A+, no indication for RhoGAM. Laboratory studies with white count of 11.2. CMP with sodium 130, bicarb 20. Fluids are ongoing. Otherwise stable electrolytes. Normal LFTs and lipase. UA with 3+ ketones, 3+ blood. No significant signs of infection. Patient given 2 L of fluid, Pepcid, Reglan, Benadryl. Feeling much improved on re-evaluation. Able to tolerate p.o. intake. Advised she will need very close follow-up with OBGYN for further evaluation. Will prescribe short course of Reglan for home use. Discussed additional dcdb-usz-coeqixm therapies to try. Discussed strict return precautions. She is in agreement with plan. Feels comfortable going home. Discharged in stable condition. Medical Records Attestation: I reviewed the patient's medical records. Lab Data Attestation: I reviewed the patient's lab results. 09/13/24 20:34 09/13/24 20:34 Labs: Lab Results 09/13/24 09/13/24 09/13/24 Range/Units 20:34 20:37 22:09 WBC 11.2 H (4.5-10.0) K/mm3 RBC 4.05 L (4.2-5.4) M/mm3 Hgb 12.9 (12.0-15.0) g/dL Hct 38.7 (37.0-47.0) % MCV 95.6 (80-100) fl MCH 31.9 (26-34) pg MCHC 33.3 (32-36) g/dl RDW 11.7 (11.5-14.5) % Plt Count 351 (150-375) k/mm3 MPV 9.0 (7.4-10.4) fl Immature Gran % (Auto) 0.4 (0-0.5) % Neut % (Auto) 70.7 (45.5-73.1) % Lymph % (Auto) 20.7 (18.3-44.2) % [place] % (Auto) 7.5 (2.6-8.5) % Eos % (Auto) 0.3 (0-4.4) % Baso % (Auto) 0.4 (0.2-1.2) % Lymph # (Auto) 2.33 (0.9-3.2) K/mm3 [place] # (Auto) 0.8 H (0.1-0.6) K/mm3 Eos # (Auto) 0.0 (0-0.3) K/mm3 Baso # (Auto) 0.0 (0.0-0.1) K/mm3 Abs Immat Gran (auto) 0.04 H (0.00-0.031) K/mm3 Absolute Neuts (auto) 8.0 H (1.3-6.7) K/mm3 Absolute Nucleated RBC 0.000 (0.0-0.012) K/mm3 Nucleated RBC % 0.0 (0.0-0.2) % Sodium 130 L (137-145) mmol/L Potassium 3.9 (3.4-5.0) mmol/L Chloride 102 (98-107) mmol/L Carbon Dioxide 20 L (22-30) mmol/L Anion Gap 8 (4-12) mmol/L BUN 11 (7-17) mg/dL Creatinine 0.56 L (0.7-1.0) mg/dL Estim Creat Clear Calc Not Reportable Estimated GFR > 60 (59 - ) Glucose 83 (65-110) mg/dL Calcium 9.4 (8.4-10.2) mg/dL Total Bilirubin 0.9 (0.2-1.3) mg/dL AST 26 (14-36) U/L ALT 17 (6-35) U/L Alkaline Phosphatase 40 (38-126) U/L Total Protein 7.7 (6.3-8.2) g/dL Albumin 4.8 (3.5-5.1) g/dL Lipase 88 (23-300) U/L Beta HCG, Quant 24538.00 mIU/ML Urine Color Yellow (Yellow) Urine Appearance Cloudy H (Clear) Urine pH 6.0 (5.0-9.0) Ur Specific [place] 1.031 (1.001-1.035) Urine Protein Trace (Negative) mg/dL Urine Glucose (UA) Negative (Negative) mg/dL Urine Ketones 3+ H (Negative) mg/dL Ur Blood (Man) 3+ H (Negative) Urine Nitrate Negative (Negative) Urine Bilirubin Negative (Negative) Urine Urobilinogen 1.0 (<2.0) mg/dL Add Ur Microanalysis Reviewed Leukocyte Esterase Rfl Negative (Negative) SOPHIE/UL Urine RBC 0-2 (0-2) /hpf Urine WBC 0-5 (0-3) /hpf Ur Squamous Epith Cells Moderate (Few) /hpf Urine Bacteria 4+ H /hpf Urine Casts 0-2 Urine Mucus Present /lpf POC Urine HCG, Qual Positive (Negative) Blood Type A Positive Antibody Screen Negative Screen Not Reportable Baby's Blood Type Not Reportable Baby's THIAGO Not Reportable Doses of RhIg Required 0 Imaging Data Attestation: I personally reviewed and interpreted this imaging study as follows: Radiologist's impression: STAT RAD PELVIC US: Impression: IUP measuring 6 weeks 1 day with heart rate 112 beats per minute. No acute process. No incidental findings. Discharge Plan Discharge Clinical Impression: 6 weeks gestation of , Vaginal spotting Nausea and vomiting Qualifiers: Vomiting type: unspecified Qualified Code(s): R11.2 - Nausea with vomiting, unspecified Patient Disposition: Home Condition: Stable Instructions: Antibiotic Form, Acute Nausea and Vomiting (ED), at 7 to 10 Weeks (ED) Additional Instructions: Utilize Zofran/Reglan as needed for further nausea. Increase fluid intake. Recommend electrolyte rich fluids, gatorade, pedialyte, body armour. Recommend clear liquids or bland diet until symptoms improve, such as bananas, rice, applesauce, toast, or crackers. You need to follow-up closely with OBGYN for further evaluation. Call office tomorrow to make follow-up appointment. Continue to monitor bleeding. Return to the ED if you experience worsening or severe symptoms, severe abdominal pain, severe bleeding, unable to keep down food or drink, fevers, rectal bleeding, vomiting blood, or any other symptoms of concern. Patient Language: Italian Prescriptions: New metoclopramide HCl 5 mg tablet 5 mg PO Q6H PRN (Reason: nausea and vomiting) Qty: 15 0RF No Action aripiprazole 5 mg tablet 5 mg PO DAILY valacyclovir 500 mg tablet See Rx Instructions PO DAILY Qty: 60 5RF Rx Instructions: take 4 tablets p.o. q.12 hours for 2 total doses. May continue with 500 mg daily indefinitely for chronic suppressive therapy dextroamphetamine-amphetamine 10 mg capsule,extended release 24hr 10 mg PO QPM Qty: 30 0RF dextroamphetamine-amphetamine 15 mg capsule,extended release 24hr 15 mg PO QAM Qty: 30 0RF escitalopram oxalate 10 mg tablet See Rx Instructions .ROUTE .COMPLEX Qty: 45 2RF Dose Instruction: TAKE 1 AND 1/2 TABLETS BY MOUTH DAILY Rx Instructions: TAKE 1 AND 1/2 TABLETS BY MOUTH DAILY Follow-up/Referrals: Kareen Lowe MD [Physician] - (OBGYN) Lv Chin, DO [Primary Care Provider] - Time of Disposition: 23:37
[2024-09-13 21:46] LABS: Beta HCG Quantitative 40511.00 mIU/ML
[2024-09-13] MEDS: FAMOTIDINE 20 MG/2 ML VIAL IV PUSH (22:01)
[2024-09-13] MEDS: SODIUM CHLORIDE 0.9% IV 1,000 ML 999 ML IV CONT ×2 (22:02)
[2024-09-13] MEDS: METOCLOPRAMIDE HCL INJ 10 MG/2 ML VIAL IV PUSH (22:07)
[2024-09-14 00:15] VITALS: BP 102/75; PULSE 63; RESP 18; O2SAT 99
== END 2024-09-14 00:24 | disposition home or self-care (01) ==
PROVIDERS: Emergency Medicine; Emergency Provider Physician Assistant; PCP Internal Medicine
DX: O21.9 Vomiting of pregnancy, unspecified (principal); O20.9 Hemorrhage in early pregnancy, unspecified; O99.611 Diseases of the digestive system complicating pregnancy, first trimester; K58.9 Irritable bowel syndrome, unspecified; O99.341 Other mental disorders complicating pregnancy, first trimester; F90.9 Attention-deficit hyperactivity disorder, unspecified type; F41.1 Generalized anxiety disorder; O99.331 Smoking (tobacco) complicating pregnancy, first trimester; F17.290 Nicotine dependence, other tobacco product, uncomplicated; Z3A.01 Less than 8 weeks gestation of pregnancy; Z79.899 Other long term (current) drug therapy
CPT/HCPCS: 36415; 76801; 76817; 80053; 81001; 81025; 83690; 84702; 85025; 85461; 86850; 86900; 86901; 96361; 96374; 96375; 99284; J1200; J2765; J7030

== ENCOUNTER 2024-09-16 05:21 | Emergency (ER) | payer BC, SELFPAY ==
[2024-09-16] VITALS (12 sets, daily range): BP systolic 101–122; BP diastolic 48–91; PULSE 72–85; RESP 15–18; O2SAT 98–100
--- OUTSIDE RECORDS SUMMARY | 2024-09-16 05:23 | XMS_ITS | Clinical Summary ---
Author Organization [facility] Address [address] [place] [address] Care Team Providers Care Speech Instructor Name Role Phone Lv Chin DO Primary Care Provider [phone] Allergies Active Allergy Reactions Criticality Noted Date [...] HPV DNA test positive;Recorded Elsewhere: No Location: [facility] Source: EHR Chronic: N Practice ID: [id number] Billable Time: 03:46:57 PM Bipolar 2 disorder, major depressive episode 03/2018 Adult general medical examination 02/15/2018 Dysmenorrhea 01/28/2013 Overview (05/16/2023): Dysmenorrhea;Recorded Elsewhere: No Location: [facility] Source: EHR Chronic: N Practice ID: [id number] Billable Time: 03:45:00 PM Irregular periods 01/28/2013 Overview (08/16/2023): Irregular menstrual cycle;Recorded Elsewhere: No Location: [facility] Source: EHR Chronic: N Practice ID: [id number] Billable Time: 03:45:00 PM Encounters Date Type Department Care Team Description 09/13/2024 7:15 PM CDT Office Visit [facility] Convenient Care at [address] [address] Shreya Israel NP Dehydration (Primary [...] on file 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
--- OUTSIDE RECORDS SUMMARY | 2024-09-16 05:23 | XMS_ITS | Continuity of Care Document ---
Author Organization [facility] Address [address] [place] [address] [place] [address] Phone Care Team Providers Care Counter Tacker Name Role Phone Umanzor OD, Yann Unavailable Unavailable Procedures Procedure Date Eye Exam, New Patient Refraction Advance Directives Directive Yes / No Effective Date File Name No Information Encounters Encounter Description Practice Location Reason(s) For Visit Diagnoses Date Provider Providers Copied on Encounter [facility], [address], [place], [place], [id number], [place] tel:[phone] [facility] No Information 0-200 8 Umanzor OD Yann. [address] , [address], [place], [address], [place]. tel:[phone] Family History Family Member Type Diagnosis Age At Onset No Information Payers Payer name Insurance type Covered alliance party ID Merari duke(s) [employer] Vision Plan CI [id number] 2 Social History Type Description Quantity Date [...]
--- OUTSIDE RECORDS SUMMARY | 2024-09-16 05:23 | XMS_ITS ---
Author Organization [facility] [facility] [facility] Address [address] [place] [address] [address] [place] [address] Care Team Providers Care Clearing Supervisor Name Role Phone Lv Chin DO Primary Care Provider Chelly Gamboa Unavailable [phone] Allergies No Known Allergies REASON FOR VISIT [...] nonsmoker Encounters Encounter Location Date Provider Diagnosis [facility], [address] Fajardo [address] [place] [address] 04/05/2023 Chelly Nunn Plan Of Treatment No Information Progress Notes * Fabiola JAY ADOB: [birth year] (24 yo F)Acc No.[id number]:04/05/2023 Patient: Fabiola RIBEIRO Provider: KALPESH Dewitt :2000 A ge:23 Y S ex:Female Date:04/05/2023 [facility] [facility] Pcp:Lv Chin, DO Subjective: * Chief Complaints: [...] 2022. * Hospitalization/Major Diagno stic Procedure: A [facility]: Abdominal Pain 11/2022, [facility]: Abdominal Pain 11/2022, Epigastric Pain - Multiple [...] * Electronic signature of EVELINE Paris on 09/16/2024 at 05:23 AM CDT Sign off status: Pending * Provider: KALPESH Dewitt Date: 0 04/05/2023 Generated for Cindy bloom/Abdirahman/Nickolas on: 0 09/16/2024 05:23 AM CDT
--- OUTSIDE RECORDS SUMMARY | 2024-09-16 05:23 | XMS_ITS | Patient Health Record ---
Author Organization [facility] [employer] Address [facility] [address] [facility] [address] [place] [address] Care Team Providers Care Gang Saw Operator Name Role Phone Lv Chin DO Primary Care Provider Angle Farris Unavailable [phone] Allergies No Known Allergies Results Component Value Reference Range Notes UDT Reviewed date:12/12/2023 04:43:10 PM Interpretation: Performing Lab: Notes/Report: THC p 0 - 50 ng/ml Cocaine n 0 - 300 ng/ml Amphetamine p 0 - 1000 ng/ml Buprenorphine (BUP) n 0 - 10 ng/ml Secobarbital (Bar) n 0 - 300 ng/ml Oxazepam (BZO) n 0 - 300 ng/ml 1-iumbwhqrrz-1,4-qhgmlmzs-2,3-diphenylpyrrolidine (YOLY P) n 0 - 300 ng/ml Methamphetamine (MET) n 0 - 1000 ng/ml Methylenedioxymethamphetamine (MDMA) n 0 - 500 ng/ml Morphine (MOP 300/[id number]) n 0 - 300 ng/ml Methadone (MTD) [...] Status Risk Notes Problem Bipolar 2 disorder (01005239) Bipolar 2 disorder (F31.81) Active confirmed Problem Attention deficit hyperactivity disorder (316051407) ADHD (attention deficit hyperactivity disorder), combined type (F90.2) Active confirmed Vital Signs Heart Rate 117 /min 12/12/2023 Height-cm 165.1 cm 12/12/2023 Blood pressure diastolic 81 mm Hg 12/12/2023 Weight-kg 55.34 kg 12/12/2023 Height 65 in 12/12/2023 Blood pressure systolic 122 mm Hg 12/12/2023 Weight 122 lbs 12/12/2023 BMI 20.3 kg/m2 12/12/2023 Encounters Encounter Location Date Provider Diagnosis [facility] [address] [place] [address] 10/31/2023 Angle Torres Bipolar 2 disorder F31.81 and ADHD (attention deficit hyperactivity disorder), combined type F90.2 [facility] [address] [place] [address] 12/12/2023 Angleclaire Torres Bipolar 2 disorder F31.81 and ADHD (attention deficit hyperactivity disorder), combined type F90.2 [facility] [address] [place] [address] 03/12/2024 Angleclaire Torres [facility] [address] [facility] [address] [place] [address] 11/11/2023 Angle Torres ADHD (attention deficit hyperactivity disorder), combined type F90.2 [facility] [address] [facility] [address] [facility] [address] [place] [address] 11/14/2023 Angleclaire Torres [facility] [address] [facility] [address] [facility] [address] [place] [address] 11/21/2023 Angle Torres ADHD (attention deficit hyperactivity [...] Insured Coverage Start Date Coverage End Date [facility] [address] [place] [address] [id number] Fabiola Jay Self - patient is the insured Medical (General) History Medical History History ICD Code Please check off any of the following medical conditions you currently have or have had in the past:: anxiety,depression,gastrointestinal disorders,high blood pressure,thyroid disease
--- OUTSIDE RECORDS SUMMARY | 2024-09-16 05:23 | XMS_ITS | Encounter Summary ---
Author Organization [facility] Address [address] [place] [address] Care Team Providers Care Bicycle Mechanic Name Role Phone Unavailable Primary Care Provider Unavailabl e Prior Encounters Date Type Department Care Team Description 03/05/2019 Converted CPS Chart Documents [facility] [address] [place] [phone] <No scans attached> 03/05/2019 Converted CPS Chart Documents [facility] [id number] [place] [address] <No scans attached> 03/05/2019 Converted 13x Documents [facility] [address] [place] [address] <No scans attached> 03/05/2019 Converted 13x Documents [facility] [address] [place] [phone] <No scans attached> Plan of Treatment [...]
--- OUTSIDE RECORDS SUMMARY | 2024-09-16 05:23 | XMS_ITS | Patient Health Record ---
Author Organization [facility] Address [address] [facility] [address] Goldberg[address] [place] [address] Care Team Providers Care Command And Control Specialist Name Role Phone Lv Chin DO Primary Care Provider Christy mar Allergies No Known Allergies Reason For Referral No Information Medications Medication SIG (Take, Route, Frequency, Duration) Notes Start Date End Date Status Morphine Sulfate Act ban Sucralfate 1 GM/10ML [...] Blue Access Choice PPO E2 [address] [place] [address] [id number] [facility] Julio leos Child - Insured has Financial Responsibility Medical (General) History Medical History History ICD Code SIBO Pancreatic Insufficiency IBS Anxiety ADHD Surgical History Surgery Date(Month/Year) Colonoscopy (Outside Provider) 2022 EGD (Outside Provider) 2022 Hospitalization History Reason Date(Month/Year) Epigastric Pain - Multiple [facility]: Abdominal Pain 11/2022 [facility]: Abdominal Pain 11/2022
--- OUTSIDE RECORDS SUMMARY | 2024-09-16 05:23 | XMS_ITS | Clinical Summary ---
Author Organization [facility] Address [address] [place] [address] Care Team Providers Care Interior Plant Caretaker Name Role Phone Unavailable Primary Care Provider [...]
--- OUTSIDE RECORDS SUMMARY | 2024-09-16 05:23 | XMS_ITS | Referral Summary ---
Author Organization [facility] Address [address] [place] [address] Care Team Providers Care Marine Service Operator Name Role Phone Lv Chin DO Primary Care Provider [phone] Encounters Date Type Department Care Team Description 09/13/2024 7:15 PM CDT Office Visit [facility] Medical Group Convenient Care at [address] [address] Shreya Israel NP Dehydration (Primary [...] HPV DNA test positive;Recorded Elsewhere: No Location: [facility] Source: EHR Chronic: N Practice ID: [id number] Billable Time: 03:46:57 PM Bipolar 2 disorder, major depressive episode 03/2018 Adult general medical examination 02/15/2018 Dysmenorrhea 01/28/2013 Overview (05/16/2023): Dysmenorrhea;Recorded Elsewhere: No Location: [facility] Source: EHR Chronic: N Practice ID: [id number] Billable Time: 03:45:00 PM Irregular periods 01/28/2013 Overview (08/16/2023): Irregular menstrual cycle;Recorded Elsewhere: No Location: [facility] Source: EHR Chronic: N Practice ID: [id number] [...] file 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
--- OUTSIDE RECORDS SUMMARY | 2024-09-16 05:23 | XMS_ITS | Clinical Summary ---
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 GC DNA AMPLIFICATION NOT DETECTED Not Detected 12/03/2020 3:33 PM CDT [facility] Genital SWAB OF ENDOCERVIX / Unknown Collection / Unknown 12/02/2020 9:37 AM CDT 12/02/2020 9:41 AM CDT Narrative [facility] - 12/03/2020 3:33 PM CDT Results should not be used for the evaluation of suspected sexual abuse or for other medico-legal indications. The only legally accepted results are from culture. Results cannot be used to assess therapeutic success or failure since nucleic acids may persist following antimicrobial therapy. us Almas Urbina MD MICROBIOLOGY - GENERAL ORDERAB LES Final Result [facility] CLIA# [id number] [address] [place] [address] from Last 3 Months or Most Recently Relevant to Health Maintenance Insurance [employer] medical/TRUE BLUE PPO [facility] [id number] BCBS BLUE ACCESS CHOICE RX [employer] PLANS (INTERNAL) [facility] Internal Plans Advance Directives For more information, please contact: [phone] * Full Code (Latest Code Status on File) Date Activated Date Inactivated Comments 11/26/2022 5:14 PM 11/26/2022 9:33 PM * Full Code Date Activated Date Inactivated Comments 11/26/2022 1:32 PM 11/26/2022 5:14 PM * Full Code Date Activated Date Inactivated Comments 02/15/2018 5:29 AM 02/17/2018 7:22 PM Care Teams Heat Set Operator Relationship Specialty Start Date End Date Lei Prieto DO [address] [place] [address] PCP - General Printing Machine Mechanic 12/02/20
--- OUTSIDE RECORDS SUMMARY | 2024-09-16 05:32 | XMS_ITS | Continuity of Care Document ---
Author Organization [facility] Address [address] [place] [address] [place] [address] Phone Care Team Providers Care Ruby Rails Developer Name Role Phone Umanzor OD, Yann Unavailable Unavailable Procedures Procedure Date Eye Exam, New Patient Refraction Advance Directives Directive Yes / No Effective Date File Name No Information Encounters Encounter Description Practice Location Reason(s) For Visit Diagnoses Date Provider Providers Copied on Encounter [facility], [address], [place], [place], [id number], [place] tel:[phone] [facility] No Information 0-200 8 Umanzor OD Yann. [address] , [address], [place], [address], [place]. tel:[phone] Family History Family Member Type Diagnosis Age At Onset No Information Payers Payer name Insurance type Covered green party ID Merari duke(s) [employer] Vision Plan [place] [id number] 2 Social History Type Description Quantity Date [...]
[2024-09-16] MEDS: LACTATED RINGERS 1,000 ML 999 ML IV CONT (05:40)
[2024-09-16] MEDS: METOCLOPRAMIDE HCL INJ 10 MG/2 ML VIAL IV PUSH (05:40)
[2024-09-16] MEDS: PROCHLORPERAZINE EDISYLATE 10 MG/2 ML VIAL IV PUSH (06:24)
[2024-09-16] MEDS: SODIUM CHLORIDE 0.9% IV 100 ML 250 ML (06:24)
--- NOTE | 2024-09-16 06:28 | ED_ITS ---
HPI - Nausea/Vomiting/Diarrhea General Chief complaint: Nausea/Vomiting/Diarrhea Stated complaint: N/V Time Seen by Provider: 09/16/24 05:25 History of Present Illness HPI Narrative: Patient presents here with nausea vomiting, she is newly diagnosed with and has been having severe nausea since then, was seen here recently for the same thing. Tried Reglan as prescribed without improvement. Related Data Home Medications ?Medication ?Instructions ?Recorded ?Confirmed ?Last Taken ?Type aripiprazole 5 mg tablet 5 mg PO DAILY 11/29/23 05/02/24 Unknown History Allergies Allergy/AdvReac Type Severity Reaction Status Date / Time No Known Allergies Allergy Verified 09/13/24 19:54 Review of Systems Review of Systems: All systems reviewed & are unremarkable except as noted in HPI and below PMFSH Past Medical History Medical History Low fecal elastase level Nausea Generalized anxiety disorder ADHD IBS (irritable bowel syndrome) Family History Family History Mother Hypertension Depression Father Hypertension Depression Family history of thyroid disease Sibling No problems noted. Social History Social History Smoking status: Never smoker Tobacco type: e-cigarettes/vaping Alcohol intake: current Drinks per week: 2 Substance use: never Lack of Transportation: No Lack of Food: Never True Current Housing: I Have Housing Concerned About Future Housing: No Difficulty Paying Gas/Electric Bills: No Difficulty Paying for Meds: No Currently Unemployed: No Education: Trade/Vocational Certificate Difficulty w/ Childcare or Family Care: No Living arrangements: with family Spiritual care concerns: No Exam Narrative: EXAMINATION OF ORGAN SYSTEMS/BODY AREAS: Constitutional: Vital signs per nursing GENERAL: Appears uncomfortable and nauseous HEAD: Normal with no signs of head trauma. EYES: EOMI, conjunctiva normal ENT: Hearing grossly intact LUNGS: Nonlabored breathing. HEART: [Regular rate and rhythm] ABD: [Soft], [nontender to palpation] EXT: Normal range of motion SKIN: [No rashes or lesions.] NEURO: [Alert and oriented x 3. No gross focal sensory or strength deficits.] PSYCH: Normal affect Course Vital Signs Vital signs: Vital Signs Blood Pressure 122/66 09/16/24 05:34 Pulse Oximetry 98 09/16/24 05:34 Pulse Rate 85 09/16/24 05:38 Respiratory Rate 18 09/16/24 05:38 Blood Pressure 103/62 09/16/24 06:31 Pulse Oximetry 100 09/16/24 06:31 Oxygen Delivery Room Air 09/16/24 05:38 MDM - Nausea/Vomiting/Diarrhea MDM Narrative Medical decision making narrative: Patient presenting with -induced nausea vomiting, had labs and ultrasound already recently, she feels better now after fluids, Reglan and Benadryl but still slightly nauseous, I will give another round of medications and re-evaluate. She feels much better after the 2nd round. Feels ready to go home, with strict return precautions and follow-up instructions to her OBGYN. Discharge Plan Discharge Clinical Impression: Nausea and vomiting during Patient Disposition: Home Condition: Stable Instructions: Acute Nausea and Vomiting (ED) Additional Instructions: Please follow up with your OBGYN; you can always return for any further issues. Patient Language: [place] Prescriptions: New famotidine 20 mg tablet 20 mg PO DAILY Qty: 30 0RF ondansetron 4 mg tablet,disintegrating 4 mg PO Q8H PRN (Reason: nausea and vomiting) Qty: 10 0RF promethazine 25 mg suppository 25 mg RECTAL Q6H PRN (Reason: nausea and vomiting) Qty: 12 0RF No Action aripiprazole 5 mg tablet 5 mg PO DAILY metoclopramide HCl 5 mg tablet 5 mg PO Q6H PRN (Reason: nausea and vomiting) Qty: 15 0RF valacyclovir 500 mg tablet See Rx Instructions PO DAILY Qty: 60 5RF Rx Instructions: take 4 tablets p.o. q.12 hours for 2 total doses. May continue with 500 mg daily indefinitely for chronic suppressive therapy dextroamphetamine-amphetamine 10 mg capsule,extended release 24hr 10 mg PO QPM Qty: 30 0RF dextroamphetamine-amphetamine 15 mg capsule,extended release 24hr 15 mg PO QAM Qty: 30 0RF escitalopram oxalate 10 mg tablet See Rx Instructions .ROUTE .COMPLEX Qty: 45 2RF Dose Instruction: TAKE 1 AND 1/2 TABLETS BY MOUTH DAILY Rx Instructions: TAKE 1 AND 1/2 TABLETS BY MOUTH DAILY Follow-up/Referrals: Lv Chin, DO [Primary Care Provider] -
== END 2024-09-16 07:46 | disposition home or self-care (01) ==
PROVIDERS: Emergency Provider Emergency Medicine; PCP Internal Medicine
DX: O21.0 Mild hyperemesis gravidarum (principal)
CPT/HCPCS: 96361; 96374; 96375; 99284; J0780; J1200; J2765; J7120